=== PATIENT | female | born 1985 | race Caucasian/White ===

== ENCOUNTER 2016-08-21 03:31 | Emergency (ER) | payer MEDICAID ==
[2016-08-21] MEDS ORDERED: Ondansetron 4 MG/2 ML SDV IVPUSH ONE (04:17)
[2016-08-21] MEDS ORDERED: HYDROmorphone 0.5 MG/0.5 ML Syringe IVPUSH ONE ×3 (04:17→06:13)
--- NOTE | 2016-08-21 04:19 | EDM.PDOC ---
ED HPI LOWER BACK PAIN/INJURY - General Chief Complaint: Back Pain or Injury Stated Complaint: BACK/SCIATIC PAIN/MUSCLE CRAMPING Time Seen by Provider: 08/21/16 04:05 Source of Information: Reports: Patient History Limitations: Reports: Physical impairment - History of Present Illness INITIAL COMMENTS - FREE TEXT/NARRATIVE: 30-year-old female with chronic back pain presents to the ED with an acute flareup. At present she is spasming from right shoulder to left hip. She states it started about 2030 hours last evening. Patient has severe scoliosis of the thoracic and lumbar spine with chronic low back pain and sciatica down the right leg. At present she has severe pain radiating down her right leg to her big toe. States she's been in the bathtub twice tonight to try her with a spasm that can get a relief of the pain. She's taken 100 mg of tramadol every 4 hours she is taking methocarbamol and Flexeril without relief of the spasm. She can barely walk this morning due to the severity of the pain. Symptom Onset Date: 08/20/16 (Chronic low back pain but acute worsening about 2030 hours last evening.) Timing/Duration: Reports: Hour(s):, Sudden onset Location: Reports: other (Entire back from right shoulder to left hip.) Quality: Reports: Ache, Pressure, Throbbing, Other Severity: severe (Spasm.) Place of Occurrence: home Improves with: Reports: Medication (Usual medication that she takes did not seem to help relieve any of the pain tonight.) Worsens with: Reports: Movement Context: Reports: chronic pain/injury Associated Symptoms: Reports: Difficulty walking. 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 1 tab PO DAILY 08/05/14 [History] Vitamin D 50,000 Units. 50,000 units PO URRUTIA 08/05/14 [History] Multivitamin [Multivitamins] 1 cap PO DAILY 02/15/15 [History] Vitamin E 1 tab PO DAILY 02/15/15 [History] Cyclobenzaprine [Flexeril] 10 mg PO Q8H PRN 08/02/15 [History] traMADol [Ultram] 50 mg PO Q6H #10 tablet 09/14/15 [Rx] Methocarbamol 500 mg PO Q8HR PRN 07/03/16 [History] Baclofen 20 mg PO Q8H PRN #30 tablet 08/21/16 [Rx] Diclofenac Sodium [Voltaren] 50 mg PO TIDMEALS #30 tab.ec 08/21/16 [Rx] Prednisone [IMW: predniSONE] 20 mg PO ASDIRECTED #18 tab 08/21/16 [Rx] oxyCODONE HCl/Acetaminophen [Percocet 5-325 mg Tablet] 1 - 2 each PO Q4H PRN # 24 tablet 08/21/16 [Rx] Past Medical History [employer] History: Reports: Other OB/BYN History: Musculoskeletal History: Reports: Back pain, chronic Other Musculoskeletal History: scoliosis, spinal stenosis, bulging disc, sciatica 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 - Past Surgical History GI Surgical History: Reports: Cholecystectomy Female Surgical History: Reports: section Other Female Surgeries/Procedures: x4 Social & Family History - Family History Family Medical History: Noncontributory - Tobacco Use Smoking Status *Q: Never Smoker Years of Tobacco use: 5 Packs/Tins Daily: 0.1 Second Hand Smoke Exposure: No - Alcohol Use Days Per Week of Alcohol Use: 1 Number of Drinks Per Day: 2 Total Drinks Per Week: 2 - Recreational Drug Use Recreational Drug Use: No - Living Situation & Occupation Living situation: Reports: Occupation: employed ED ROS GENERAL - Review of Systems Review Of Systems: See Below Constitutional: Reports: malaise, weakness, fatigue. Denies: fever, chills, weight loss (From not being able to sleep) HEENT: Reports: No symptoms Respiratory: Reports: No Symptoms Cardiovascular: Reports: No symptoms Endocrine: Reports: fatigue GI/Abdominal: Denies: Abdominal pain : Reports: irregular menses (Mental menorrhagia. Is losing a fair amount of blood with each period. Has had to have iron transfusions 2 to iron loss as this.), other Musculoskeletal: Reports: shoulder pain, back pain, leg pain (Sciatica pain radiating all the way down the posterior lateral right leg to her big toe. The L5 nerve distribution) Skin: Reports: no symptoms Neurological: Reports: Difficulty Walking, Weakness, Gait Disturbance Psychiatric: Reports: No symptoms ED EXAM,LOWER BACK PAIN/INJURY - Physical Exam Exam: See Below Exam Limited By: Physical impairment General Appearance: alert, WD/WN, moderate distress (In severe pain in her back. ) Eye Exam: bilateral eye: normal inspection Head: atraumatic, normocephalic Neck: normal inspection, supple, non-tender, limited range of motion (Has spasm in her right paraspinal musculature.). No: lymphadenopathy (L), lymphadenopathy (R) Respiratory/Chest: no respiratory distress, lungs clear, normal breath sounds, no accessory muscle use Cardiovascular: normal peripheral pulses, regular rate, rhythm, no edema, no murmur GI/Abdominal: normal bowel sounds, soft, non tender, no organomegaly Back Exam: other (Has a severe scoliosis of the thoracic spine with curvature concave to the right. Lumbar compensatory curve is concave to the left.). No: normal inspection, full range of motion Extremities: normal range of motion, non-tender, no pedal edema Neurological: alert, normal mood/affect, CN II-XII intact, oriented x 3, straight leg raise (L) (No string sign with positivity other side), straight leg raise (R) (Positive) DTR - Lower Extremities: 0: ankle (R), 1+: knee (R), knee (L), ankle (L) Psychiatric: normal affect, normal mood Skin Exam: Warm, Dry, Intact, Normal color, No rash Course - Vital Signs Last Recorded V/S: Last Vital Signs Temp 37.0 C 08/21/16 03:41 Pulse 58 L 08/21/16 07:55 Resp 16 08/21/16 07:55 BP 104/67 08/21/16 07:55 Pulse Ox 100 08/21/16 07:55 - Orders/Labs/Meds Orders: Active Orders 24 hr Category Date Time Status Dextrose 5%-0.9% NaCl [Dextrose 5%-Normal Saline] 1,000 Med 08/21/16 04:30 Active ml IV ASDIRECTED Medication Orders Dextrose/Sodium Chloride (Dextrose 5%-Normal Saline) 1,000 mls @ 150 mls/hr IV ASDIRECTED LEONORA Last Admin: 08/21/16 04:40 Dose: 150 mls/hr Labs: Laboratory Tests 08/21/16 08/21/16 Range/Units 04:29 04:29 WBC 6.79 (3.98-10.04) K/mm3 RBC 4.70 (3.98-5.22) M/mm3 Hgb 12.7 (11.2-15.7) gm/L Hct 38.2 (34.1-44.9) % MCV 81.3 (79.4-94.8) fl MCH 27.0 (25.6-32.2) pg MCHC 33.2 (32.2-35.5) g/dl RDW Std Deviation 53.1 H (36.4-46.3) fL Plt Count 323 (182-369) K/mm3 MPV 10.4 (9.4-12.3) fl Neutrophils % (Manual) 58 (40-60) % Band Neutrophils % 0 (0-10) % Lymphocytes % (Manual) 32 (20-40) % Atypical Lymphs % 0 % Monocytes % (Manual) 8 (2-10) % Eosinophils % (Manual) 2 (0.7-5.8) % Basophils % (Manual) 0 L (0.1-1.2) Platelet Estimate Adequate RBC Morph Comment Normal Iron 55 (50-170) ug/dL TIBC 571 H (100-400) ug/dL % Saturation 10 L (20-55) % Transferrin 457 H (202-364) mg/dL Ferritin 10 (8-252) ng/ml Meds: Medications Generic Name Dose Route Start Last Admin Trade Name Freq PRN Reason Stop Dose Admin Dextrose/Sodium Chloride 1,000 mls @ 150 mls/hr 08/21/16 04:30 08/21/16 04:40 Dextrose 5%-Normal Saline IV 150 mls/hr ASDIRECTED LEONORA Administration Discontinued Medications Generic Name Dose Route Start Last Admin Trade Name Freq PRN Reason Stop Dose Admin Diazepam 5 mg 08/21/16 04:18 08/21/16 04:36 Valium IVPUSH 08/21/16 04:19 5 mg ONETIME ONE Administration Diazepam 5 mg 08/21/16 06:14 08/21/16 06:27 Valium IVPUSH 08/21/16 06:15 5 mg ONETIME ONE Administration Hydromorphone HCl 0.5 mg 08/21/16 04:17 08/21/16 04:38 Dilaudid IVPUSH 08/21/16 04:18 0.5 mg ONETIME ONE Administration Hydromorphone HCl 0.5 mg 08/21/16 05:15 08/21/16 05:34 Dilaudid IVPUSH 08/21/16 05:16 0.5 mg ONETIME ONE Administration Hydromorphone HCl 0.5 mg 08/21/16 06:13 08/21/16 06:25 Dilaudid IVPUSH 08/21/16 06:14 0.5 mg ONETIME ONE Administration Ondansetron HCl 4 mg 08/21/16 04:17 08/21/16 04:34 Zofran IVPUSH 08/21/16 04:18 4 mg ONETIME ONE Administration - Radiology Interpretation Free Text/Narrative:: 31-year-old female tends ED with an acute exacerbation of her chronic low back pain. Started lasting about 2030 hours and no matter what she's done at home she cannot get comfortable. Has taken extra doses of tramadol as well as cyclobenzaprine and Tylenol with some severe spasm in her entire back from right shoulder to left hip. She has sciatica radiculopathy pain down the right leg to the big toe in the discharged of L5 nerve root. Sedated thoroughly the past and is told she's not a surgical candidate. Plan essentially is that of pain management. We'll initiate Dilaudid 0.5 mg IV with Valium 5 mg IV and see how she does. Routine labs including iron binding capacity total iron and serum ferritin levels will be evaluated since she needs blood drawn tonight and he weighs and she was due for these blood tests tomorrow. - Re-Assessments/Exams Free Text/Narrative Re-Assessment/Exam: 08/21/16 05:20 - Currently rates her pain as 7/10. Therefore we'll give her another dose of Dilaudid 0.5 mg IV for pain relief. 08/21/16 06:14 and to get some relief of the spasm. She states she can now move her right leg. Will repeat Dilaudid 0.5 mg IV and Valium 5 mg IV. 08/21/16 07:30: Patient has gained some relief of some of the spasm and pain in her back. She was discharged to home in the care of her friend. Prescription written for Voltaren 50 mg 3 times daily for the next 10 days. Prednisone 20 mg with breakfast and supper for 6 days and one tablet in the morning once daily for 6 days as well. Baclofen 20 mg to be used Q8 hours when necessary for muscle spasm if needed. Percocet tabs 5 325 one to 2 every 4-6 hours needed for pain relief. Lab work done did prove that she is iron deficient. Total iron is 55 total iron binding capacity was 571% saturation is 10% transferrin was 457 ferritin is 10. She will discuss these results with her and Percocet her usual care provider . Pharmacy can help sort out iron needs. Departure - Departure Time of Disposition: 07:44 Disposition: Home, Self-Care 01 Condition: fair Clinical Impression: Acute exacerbation of chronic low back pain, Iron deficiency Sciatica Qualifiers: Laterality: right Qualified Code(s): M54.31 - Sciatica, right side Prescriptions: Baclofen 20 mg PO Q8H PRN #30 tablet PRN Reason: muscle spasm Diclofenac Sodium [Voltaren] 50 mg PO TIDMEALS #30 tab.ec Prednisone [IMW: predniSONE] 20 mg PO ASDIRECTED #18 tab oxyCODONE HCl/Acetaminophen [Percocet 5-325 mg Tablet] 1 - 2 each PO Q4H PRN # 24 tablet PRN Reason: pain relief. Instructions: Sciatica, Back Pain, Adult, [id number], Iron Deficiency Anemia , Adult, [id number] Referrals: Kelly Aburto PA-C [Primary Care Provider] - Forms: ED Department Discharge Additional Instructions: Evaluation in the emergency room today in regards to acute exacerbation of chronic low back pain. Associated diffuse muscle spasm from right shoulder to left hip. Chronic back pain from severe scoliosis of thoracic and lumbar spine. Sciatica involving the right leg in the L5 nerve root distribution. You're treated with intravenous medications overnight Dilaudid 0.5 mg x3 doses and Valium 5 mg IV x2 doses to relieve pain and muscle spasm. Lab work done at your request this was due tomorrow for iron deficiency anemia. did confirms iron deficiency with total iron of 55. Normal is 50-170. Total iron binding capacity was 571 normal is 100-400. Percent saturation was 10% normal is 20-55%. Ferritin level was 10 normal is 8-252. Follow up with her usual care provider who can discuss iron infusions with pharmacy to replace iron deficiency. In regards to the muscle spasm I prescribed Voltaren 50 mg 3 times daily for the next 10 days to relieve pain and inflammation. This is in combination with prednisone 20 mg with breakfast and supper for 6 days and then one tablet in the morning only for another 6 days. These tablets can be hard on the stomach and I would suggest being on Prilosec 20 mg once daily while on these medications. He may also try baclofen 20 mg tablet every 8-12 hours as needed for severe muscle spasm relief particularly when the muscle spasm starts. Percocet tablets 5/325mg --- 1-2 tabs every 4hrs as needed for pain relief. - My Orders Last 24 Hours: My Active Orders 08/21/16 04:30 Dextrose 5%-0.9% NaCl [Dextrose 5%-Normal Saline] 1,000 ml IV ASDIRECTED - Assessment/Plan Last 24 Hours: My Active Orders 08/21/16 04:30 Dextrose 5%-0.9% NaCl [Dextrose 5%-Normal Saline] 1,000 ml IV ASDIRECTED
[2016-08-21] MEDS ORDERED: Dextrose 5%-0.9% NaCl 1,000 ML IV SCH (04:30)
[2016-08-21 08:19] VITALS: BP 102/67
== END 2016-08-21 08:10 | disposition home or self-care (01) ==
LOC: JD.ED 03:31
DX: M54.5 Low back pain (principal); G89.29 Other chronic pain; E61.1 Iron deficiency; Z90.49 Acquired absence of other specified parts of digestive tract; Z85.820 Personal history of malignant melanoma of skin; Z88.5 Allergy status to narcotic agent
CPT/HCPCS: 36415; 82728; 83540; 84466; 85025; 96361; 96374; 96375; 96376; 99284; J1170; J2405; J3360; J7042

== ENCOUNTER → 2016-08-22 | Day surgery (SDC) | payer MEDICAID ==
[2016-08-22 08:54] VITALS: BP 108/66
== END ==
LOC: JD.IVTHER 08:20
PROVIDERS: ATTEND Physician Assistant
DX: E61.1 Iron deficiency (principal)
CPT/HCPCS: 96365; 96366; J1756; J7050

== ENCOUNTER 2016-09-17 19:15 | Emergency (ER) | payer MEDICAID ==
[2016-09-17 19:27] VITALS: BP 127/83
[2016-09-17] MEDS ORDERED: Sodium Chloride 0.9% 250 ML IV STA (19:27)
[2016-09-17] MEDS ORDERED: Sodium Chloride 0.9% 10 ML Syringe FLUSH PRN (19:40)
[2016-09-17] MEDS ORDERED: HYDROmorphone 1 MG/ML Syringe IVPUSH ONE (19:40)
[2016-09-17] MEDS ORDERED: Ketorolac 30 MG/ML SDV IVPUSH ONE (19:41)
--- NOTE | 2016-09-17 20:57 | EDM.PDOC ---
ED HPI GENERAL MEDICAL PROBLEM - General Chief Complaint: Back Pain or Injury Stated Complaint: BACK SPASMS Time Seen by Provider: 09/17/16 19:24 Source of Information: Reports: Patient History Limitations: Reports: No Limitations - History of Present Illness INITIAL COMMENTS - FREE TEXT/NARRATIVE: The patient presents with lower and upper back pain. She has a history of scholiosis and has seen multiple specialists. They have told her she may need surgery but there is no guarantee that she will be pain free. She went on a couple car rides recently and that has made it worse. She tried to take some tramadol today and it has not bee helping. She has some paint that shoots down her right leg. She has no fever, chills or cough. She denies numbness or weakness. Onset: Gradual Duration: Day(s): (Yesterday) Location: Reports: Back (Lower and upper back) Quality: Reports: Sharp Severity: Severe Improves with: Reports: None Worsens with: Reports: Movement Context: Reports: Activity (Riding in a car) Associated Symptoms: Reports: No Other Symptoms Back Pain Score (Numeric/FACES): 10 - Related Data Allergies Allergy/AdvReac Type Severity Reaction Status Date / Time No Known Allergies Allergy Verified 09/17/16 21:32 Home Meds: Home Meds Vitamin B12. 1 tab PO DAILY 08/05/14 [History] Vitamin D 50,000 Units. 50,000 units PO URRUTIA 08/05/14 [History] Multivitamin [Multivitamins] 1 cap PO DAILY 02/15/15 [History] Vitamin E 1 tab PO DAILY 02/15/15 [History] Cyclobenzaprine [Flexeril] 10 mg PO Q8H PRN 08/02/15 [History] traMADol [Ultram] 50 mg PO Q6H #10 tablet 09/14/15 [Rx] Methocarbamol 500 mg PO Q8HR PRN 07/03/16 [History] Baclofen 20 mg PO Q8H PRN #30 tablet 08/21/16 [Rx] Diclofenac Sodium [Voltaren] 50 mg PO TIDMEALS #30 tab.ec 08/21/16 [Rx] Prednisone [IMW: predniSONE] 20 mg PO ASDIRECTED #18 tab 08/21/16 [Rx] oxyCODONE HCl/Acetaminophen [Percocet 5-325 mg Tablet] 1 - 2 each PO Q4H PRN # 24 tablet 08/21/16 [Rx] Baclofen 20 mg PO Q8HR PRN #30 tablet 09/17/16 [Rx] Diclofenac Potassium [Cambia] 50 mg PO TID PRN #30 powd.pack 09/17/16 [Rx] Prednisone [IJD: predniSONE] 20 mg PO BID #18 tab 09/17/16 [Rx] oxyCODONE HCl/Acetaminophen [Percocet 5-325 mg Tablet] 1 - 2 each PO Q6HR PRN # 20 tablet 09/17/16 [Rx] Past Medical History [employer] History: Reports: Other OB/BYN History: Musculoskeletal History: Reports: Back Pain, Chronic Other Musculoskeletal History: scoliosis, spinal stenosis, bulging disc, sciatica 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 - Past Surgical History GI Surgical History: Reports: Cholecystectomy Female Surgical History: Reports: Section Social & Family History - Family History Family Medical History: Noncontributory - Tobacco Use Smoking Status *Q: Unknown Ever Smoked Years of Tobacco use: 5 Packs/Tins Daily: 0.1 Second Hand Smoke Exposure: No - Alcohol Use Days Per Week of Alcohol Use: 1 Number of Drinks Per Day: 2 Total Drinks Per Week: 2 - Recreational Drug Use Recreational Drug Use: No - Living Situation & Occupation Living situation: Reports: Occupation: Employed ED ROS GENERAL - Review of Systems Review Of Systems: See Below Constitutional: Reports: No Symptoms HEENT: Reports: No Symptoms Respiratory: Reports: No Symptoms Cardiovascular: Reports: No Symptoms Endocrine: Reports: No Symptoms GI/Abdominal: Reports: No Symptoms : Reports: No Symptoms Musculoskeletal: Reports: Back Pain (Upper and lower) Skin: Reports: No Symptoms Neurological: Reports: No Symptoms ED EXAM,LOWER BACK PAIN/INJURY - Physical Exam Exam: See Below Exam Limited By: No Limitations General Appearance: Alert, No Apparent Distress Ears: Normal External Exam Nose: Normal Inspection Head: Atraumatic, Normocephalic Neck: Normal Inspection Respiratory/Chest: No Respiratory Distress, Lungs Clear, Normal Breath Sounds Cardiovascular: Regular Rate, Rhythm, No Edema, No Murmur GI/Abdominal: Soft, Non-Tender, No Organomegaly, No Mass Back Exam: Other (Pain upon palpation to the upper and lower back) Extremities: Normal Inspection Neurological: Alert, No Motor/Sensory Deficits, Oriented x 3 Course - Vital Signs Last Recorded V/S: Last Vital Signs Temp 99.9 F 09/17/16 19:24 Pulse 86 09/17/16 19:24 Resp 18 09/17/16 19:24 BP 127/83 09/17/16 19:24 Pulse Ox 100 09/17/16 19:24 - Orders/Labs/Meds Orders: Active Orders 24 hr Category Date Time Status Peripheral IV Care [RC] . DIRECTED Care 09/17/16 19:40 Active Sodium Chloride 0.9% [Normal Saline] 1,000 ml Med 09/17/16 21:20 Active IV ONETIME Sodium Chloride 0.9% [Saline Flush] Med 09/17/16 19:40 Active 10 ml FLUSH ASDIRECTED PRN Peripheral IV Insertion Adult [OM.PC] Routine Oth 09/17/16 19:40 Ordered Medication Orders Sodium Chloride (Normal Saline) 1,000 mls @ 1,000 mls/hr IV ONETIME ONE Stop: 09/17/16 22:19 Last Admin: 09/17/16 21:26 Dose: 1,000 mls/hr Sodium Chloride (Saline Flush) 10 ml FLUSH ASDIRECTED PRN PRN Reason: Keep Vein Open Last Admin: 09/17/16 20:12 Dose: 10 ml Meds: Medications Generic Name Dose Route Start Last Admin Trade Name Freq PRN Reason Stop Dose Admin Sodium Chloride 1,000 mls @ 1,000 mls/hr 09/17/16 21:20 09/17/16 21:26 Normal Saline IV 09/17/16 22:19 1,000 mls/hr ONETIME ONE Administration Sodium Chloride 10 ml 09/17/16 19:40 09/17/16 20:12 Saline Flush FLUSH 10 ml ASDIRECTED PRN Administration Keep Vein Open Discontinued Medications Generic Name Dose Route Start Last Admin Trade Name Freq PRN Reason Stop Dose Admin Diazepam 5 mg 09/17/16 19:41 09/17/16 20:18 Valium IVPUSH 09/17/16 19:42 5 mg ONETIME ONE Administration Diazepam 5 mg 09/17/16 21:08 09/17/16 21:15 Valium IVPUSH 09/17/16 21:09 5 mg ONETIME ONE Administration Hydromorphone HCl 1 mg 09/17/16 19:40 09/17/16 20:16 Dilaudid IVPUSH 09/17/16 19:41 1 mg ONETIME ONE Administration Hydromorphone HCl 0.5 mg 09/17/16 21:08 09/17/16 21:15 Dilaudid IVPUSH 09/17/16 21:09 0.5 mg ONETIME ONE Administration Sodium Chloride 250 mls @ 75 mls/hr 09/17/16 19:27 09/17/16 19:48 Normal Saline IV 09/17/16 22:46 Not Given NOW STA Ketorolac Tromethamine 30 mg 09/17/16 19:41 09/17/16 20:14 Toradol IVPUSH 09/17/16 19:42 30 mg ONETIME ONE Administration Ondansetron HCl 4 mg 09/17/16 21:21 09/17/16 21:26 Zofran IVPUSH 09/17/16 21:22 4 mg ONETIME ONE Administration - Re-Assessments/Exams Free Text/Narrative Re-Assessment/Exam: 09/17/16 21:58 I ordered an IV saline lock, dilaudid 1mg IV, toradol 30mg IV and valium 5mg IV. I checked on her later and she still had pain so I ordered dilaudid 0.5g IV and valium 5mg IV. She is feeling better now so I will discharge her home. Departure - Departure Time of Disposition: 22:00 Disposition: Home, Self-Care 01 Condition: good Clinical Impression: Back muscle spasm, Low back pain of multiple sites of spine with sciatica, Acute exacerbation of chronic low back pain - Discharge Information Prescriptions: oxyCODONE HCl/Acetaminophen [Percocet 5-325 mg Tablet] 1 - 2 each PO Q6HR PRN # 20 tablet PRN Reason: Pain Baclofen 20 mg PO Q8HR PRN #30 tablet PRN Reason: Pain Diclofenac Potassium [Cambia] 50 mg PO TID PRN #30 powd.pack PRN Reason: Pain Prednisone [IJD: predniSONE] 20 mg PO BID #18 tab Referrals: Kelly Aburto PA-C [Primary Care Provider] - 1 Week Forms: ED Department Discharge Additional Instructions: Take the medication as prescribed. Please return if you are worse. - My Orders Last 24 Hours: My Active Orders 09/17/16 19:40 Peripheral IV Care [RC] . DIRECTED Sodium Chloride 0.9% [Saline Flush] 10 ml FLUSH ASDIRECTED PRN Peripheral IV Insertion Adult [OM.PC] Routine 09/17/16 21:20 Sodium Chloride 0.9% [Normal Saline] 1,000 ml IV ONETIME - Assessment/Plan Last 24 Hours: My Active Orders 09/17/16 19:40 Peripheral IV Care [RC] . DIRECTED Sodium Chloride 0.9% [Saline Flush] 10 ml FLUSH ASDIRECTED PRN Peripheral IV Insertion Adult [OM.PC] Routine 09/17/16 21:20 Sodium Chloride 0.9% [Normal Saline] 1,000 ml IV ONETIME
[2016-09-17] MEDS ORDERED: HYDROmorphone 0.5 MG/0.5 ML Syringe IVPUSH ONE (21:08)
[2016-09-17] MEDS ORDERED: Sodium Chloride 0.9% 1,000 ML IV ONE (21:20)
[2016-09-17] MEDS ORDERED: Ondansetron 4 MG/2 ML SDV IVPUSH ONE (21:21)
== END 2016-09-17 22:32 | disposition home or self-care (01) ==
LOC: JD.ED 19:15
DX: M62.830 Muscle spasm of back (principal); M54.30 Sciatica, unspecified side; M54.5 Low back pain; G89.29 Other chronic pain; Z90.49 Acquired absence of other specified parts of digestive tract; Z98.890 Other specified postprocedural states; Z79.899 Other long term (current) drug therapy
CPT/HCPCS: 96361; 96374; 96375; 96376; 99283; J1170; J1885; J2405; J3360; J7040; J7050; 99284

== ENCOUNTER 2016-11-08 11:57 | Emergency (ER) | payer BC, MEDICAID, OTHER, SELFPAY ==
[2016-11-08 12:15] VITALS: BP 115/62
[2016-11-08] MEDS ORDERED: Ketorolac 30 MG/ML SDV IVPUSH ONE (12:48)
[2016-11-08] MEDS ORDERED: HYDROmorphone 1 MG/ML Syringe IVPUSH ONE ×2 (12:48→14:30)
[2016-11-08] MEDS ORDERED: Ondansetron 4 MG/2 ML SDV IVPUSH ONE (12:48)
[2016-11-08] MEDS ORDERED: Sodium Chloride 0.9% 10 ML Syringe FLUSH PRN (13:28)
--- NOTE | 2016-11-08 15:03 | EDM.PDOC ---
ED HPI GENERAL MEDICAL PROBLEM - General Chief Complaint: Back Pain or Injury Stated Complaint: Back pain Time Seen by Provider: 11/08/16 12:30 Source of Information: Reports: Patient, RN Notes Reviewed History Limitations: Reports: No Limitations - History of Present Illness INITIAL COMMENTS - FREE TEXT/NARRATIVE: 31 year old female presents to the ED with complaints of upper back muscle spasms and pain. This is a recurrent problem for her related to severe scoliosis. She took Tramadol last evening with minimal relief. No chest pain or shortness of breath. She is here for pain control as her normal medications are not working. No new injury. Lower Back Pain Score (Numeric/FACES): 10 - Related Data Allergies Allergy/AdvReac Type Severity Reaction Status Date / Time No Known Allergies Allergy Verified 11/08/16 12:15 Home Meds: Home Meds Vitamin D 50,000 Units. 50,000 units PO URRUTIA 08/05/14 [History] Multivitamin [Multivitamins] 1 cap PO DAILY 02/15/15 [History] Vitamin E 1 tab PO DAILY 02/15/15 [History] Cyclobenzaprine [Flexeril] 10 mg PO Q8H PRN 08/02/15 [History] Methocarbamol 500 mg PO Q8HR PRN 07/03/16 [History] Acetaminophen/oxyCODONE [Percocet 325-5 MG] 1 - 2 tab PO Q4H PRN #15 tablet [Rx] Baclofen 20 mg PO Q8H PRN #20 tablet 11/08/16 [Rx] Diclofenac Sodium [Voltaren] 50 mg PO TIDMEALS #30 tab.ec 11/08/16 [Rx] Vitamin B12 Inj 11/08/16 [History] predniSONE [Prednisone] 20 mg PO BID #10 tablet 11/08/16 [Rx] traMADol [Ultram] 1 - 2 tab PO Q8H PRN 11/08/16 [History] Past Medical History Genitourinary History: Reports: Other (See Below) Other Genitourinary History: 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 - Past Surgical History GI Surgical History: Reports: Cholecystectomy Female Surgical History: Reports: Section Social & Family History - Family History Family Medical History: Noncontributory - Tobacco Use Smoking Status *Q: Never Smoker Years of Tobacco use: 5 Packs/Tins Daily: 0.1 Second Hand Smoke Exposure: No - Alcohol Use Days Per Week of Alcohol Use: 1 Number of Drinks Per Day: 2 Total Drinks Per Week: 2 - Recreational Drug Use Recreational Drug Use: No - Living Situation & Occupation Living situation: Reports: Occupation: Employed ED ROS GENERAL - Review of Systems Review Of Systems: See Below Constitutional: Reports: No Symptoms. Denies: Fever, Chills Respiratory: Reports: No Symptoms. Denies: Shortness of Breath Cardiovascular: Reports: No Symptoms. Denies: Chest Pain Musculoskeletal: Reports: Back Pain, Muscle Pain Neurological: Reports: No Symptoms ED EXAM, UPPER BACK/NECK PAIN - Physical Exam Exam: See Below Exam Limited By: No Limitations General Appearance: Alert, WD/WN, Moderate Distress Cardiovascular/Respiratory: Regular Rate, Rhythm, No M/R/G, Normal Peripheral Pulses Back Exam: Normal Inspection, Full Range of Motion, Muscle Spasm (diffuse muscle spasms ), Paraspinal Tenderness, Other (scoliosis ). No: Vertebral Tenderness Neurologic: No Motor/Sensory Deficits, Alert, Normal Mood/Affect Course - Vital Signs Last Recorded V/S: Last Vital Signs Temp 97.7 F 11/08/16 12:05 Pulse 67 11/08/16 12:05 Resp 20 11/08/16 12:05 BP 115/62 11/08/16 12:05 Pulse Ox 100 11/08/16 12:05 - Orders/Labs/Meds Orders: Active Orders 24 hr Category Date Time Status Peripheral IV Care [RC] . DIRECTED Care 11/08/16 13:29 Active Sodium Chloride 0.9% [Saline Flush] Med 11/08/16 13:28 Active 10 ml FLUSH ASDIRECTED PRN Peripheral IV Insertion Adult [OM.PC] Stat Oth 11/08/16 13:28 Ordered Medication Orders Sodium Chloride (Saline Flush) 10 ml FLUSH ASDIRECTED PRN PRN Reason: Keep Vein Open Last Admin: 11/08/16 14:45 Dose: 10 ml Meds: Medications Generic Name Dose Route Start Last Admin Trade Name Dawitq PRN Reason Stop Dose Admin Sodium Chloride 10 ml 11/08/16 13:28 11/08/16 14:45 Saline Flush FLUSH 10 ml ASDIRECTED PRN Administration Keep Vein Open Discontinued Medications Generic Name Dose Route Start Last Admin Trade Name Dawitq PRN Reason Stop Dose Admin Diazepam 5 mg 11/08/16 12:48 11/08/16 13:23 Valium IV 11/08/16 12:49 5 mg ONETIME ONE Administration Diazepam 5 mg 11/08/16 14:30 11/08/16 14:45 Valium IV 11/08/16 14:31 5 mg ONETIME ONE Administration Fentanyl 50 mcg 11/08/16 15:24 11/08/16 15:36 Sublimaze IVPUSH 11/08/16 15:25 50 mcg ONETIME ONE Administration Hydromorphone HCl 1 mg 11/08/16 12:48 11/08/16 13:20 Dilaudid IVPUSH 11/08/16 12:49 1 mg ONETIME ONE Administration Hydromorphone HCl 1 mg 11/08/16 14:30 11/08/16 14:40 Dilaudid IVPUSH 11/08/16 14:31 1 mg ONETIME ONE Administration Ketorolac Tromethamine 30 mg 11/08/16 12:48 11/08/16 13:18 Toradol IVPUSH 11/08/16 12:49 30 mg ONETIME ONE Administration Ondansetron HCl 4 mg 11/08/16 12:48 11/08/16 13:16 Zofran IVPUSH 11/08/16 12:49 4 mg ONETIME ONE Administration - Re-Assessments/Exams Free Text/Narrative Re-Assessment/Exam: Patient was treated with Dilaudid, Fentanyl, Zofran, and Toradol. Her pain improved. She is requesting same medication regimen as her last two ED visits. She was instructed to f/u with her PCP for recheck next week. Departure - Departure Time of Disposition: 15:46 Disposition: Home, Self-Care 01 Condition: Good Clinical Impression: Back muscle spasm Scoliosis Qualifiers: Scoliosis type: unspecified scoliosis Spinal region: unspecified Qualified Code (s): M41.9 - Scoliosis, unspecified - Discharge Information Prescriptions: Acetaminophen/oxyCODONE [Percocet 325-5 MG] 1 - 2 tab PO Q4H PRN #15 tablet PRN Reason: Pain Baclofen 20 mg PO Q8H PRN #20 tablet PRN Reason: Muscle Spasm Diclofenac Sodium [Voltaren] 50 mg PO TIDMEALS #30 tab.ec predniSONE [Prednisone] 20 mg PO BID #10 tablet Forms: ED Department Discharge Additional Instructions: Follow-up with your primary care provider next week Voltaren 50 mg 3 times daily for the next 10 days. Prednisone 20 mg with breakfast and supper for 5 days Baclofen 20 mg to be used Q8 hours when necessary for muscle spasm if needed. Percocet tabs 5 325 1 to 2 every 4-6 hours needed for pain relief. - My Orders Last 24 Hours: My Active Orders 11/08/16 13:28 Sodium Chloride 0.9% [Saline Flush] 10 ml FLUSH ASDIRECTED PRN Peripheral IV Insertion Adult [OM.PC] Stat 11/08/16 13:29 Peripheral IV Care [RC] . DIRECTED - Assessment/Plan Last 24 Hours: My Active Orders 11/08/16 13:28 Sodium Chloride 0.9% [Saline Flush] 10 ml FLUSH ASDIRECTED PRN Peripheral IV Insertion Adult [OM.PC] Stat 11/08/16 13:29 Peripheral IV Care [RC] . DIRECTED
[2016-11-08] MEDS ORDERED: fentaNYL 100 MCG/2 ML SDV IVPUSH ONE (15:24)
== END 2016-11-08 16:10 | disposition home or self-care (01) ==
LOC: JD.ED 11:57
DX: M62.830 Muscle spasm of back (principal); M41.9 Scoliosis, unspecified; Z85.820 Personal history of malignant melanoma of skin; Z90.49 Acquired absence of other specified parts of digestive tract
CPT/HCPCS: 96374; 96375; 96376; 99283; J1170; J1885; J2405; J3010; J3360; J7050; 99284

== ENCOUNTER 2016-12-05 20:24 | Emergency (ER) | payer BC, MEDICAID, OTHER, SELFPAY ==
[2016-12-05 20:42] VITALS: BP 100/61
[2016-12-05] MEDS ORDERED: LORazepam 2 MG/ML MDV IVPUSH ONE (20:58)
[2016-12-05] MEDS ORDERED: Ketorolac 30 MG/ML SDV IVPUSH ONE (20:58)
[2016-12-05] MEDS ORDERED: HYDROmorphone 1 MG/ML Syringe IVPUSH ONE ×2 (20:58→21:45)
[2016-12-05] MEDS ORDERED: Sodium Chloride 0.9% 1,000 ML IV ONE (20:59)
--- NOTE | 2016-12-05 21:07 | EDM.PDOC ---
ED HPI GENERAL MEDICAL PROBLEM - General Chief Complaint: Back Pain or Injury Stated Complaint: BACK PAIN Time Seen by Provider: 12/05/16 20:39 Source of Information: Reports: Patient History Limitations: Reports: No Limitations - History of Present Illness INITIAL COMMENTS - FREE TEXT/NARRATIVE: Patient is a 31-year-old female with a history of severe scoliosis who presents to the ED complaining of severe back spasms. States pain started at approximately 2:00 this afternoon with no provoking factors. She took tramadol 50 mg 2 tabs by mouth and soaked in a tub with no relief. Pain is rated 10 out of 10 on ad. Pain radiates half ways down the posterior aspect of her right side. She did ambulate into the ED on her own accord. Denies any saddle anesthesia, incontinence to urine or stool, numbness or tingling, or any additional complaints. She has been seen on 2 separate occasions in the E.D. for similar symptoms. Right Lower Back Pain Score (Numeric/FACES): 10 - Related Data Allergies Allergy/AdvReac Type Severity Reaction Status Date / Time No Known Allergies Allergy Verified 11/08/16 12:15 Home Meds: Home Meds Vitamin D 50,000 Units. 1 tab PO DAILY 08/05/14 [History] Multivitamin [Multivitamins] 1 cap PO DAILY 02/15/15 [History] Vitamin E 1 tab PO DAILY 02/15/15 [History] Cyclobenzaprine [Flexeril] 10 mg PO Q8H PRN 08/02/15 [History] Methocarbamol 500 mg PO Q8HR PRN 07/03/16 [History] Baclofen 20 mg PO Q8H PRN #20 tablet 11/08/16 [Rx] Vitamin B12 Inj 11/08/16 [History] traMADol [Ultram] 1 - 2 tab PO Q8H PRN 11/08/16 [History] Past Medical History Genitourinary History: Reports: Other (See Below) Other Genitourinary History: severe menst. 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 - Past Surgical History GI Surgical History: Reports: Cholecystectomy Female Surgical History: Reports: Section Social & Family History - Family History Family Medical History: Noncontributory - Tobacco Use Smoking Status *Q: Never Smoker Years of Tobacco use: 5 Packs/Tins Daily: 0.1 Second Hand Smoke Exposure: No - Caffeine Use Caffeine Use: Reports: Coffee - Alcohol Use Days Per Week of Alcohol Use: 1 Number of Drinks Per Day: 2 Total Drinks Per Week: 2 - Recreational Drug Use Recreational Drug Use: No - Living Situation & Occupation Living situation: Reports: Occupation: Employed ED ROS GENERAL - Review of Systems Review Of Systems: ROS reveals no pertinent complaints other than HPI. ED EXAM, UPPER BACK/NECK PAIN - Physical Exam Exam: See Below Exam Limited By: No Limitations General Appearance: Alert, WD/WN, Moderate Distress Ears Exam: Hearing Grossly Normal Nose Exam: Normal Inspection Throat/Mouth Exam: Normal Voice, No Airway Compromise Neck Exam: Non-Tender, Full Range of Motion, Normal Alignment Cardiovascular/Respiratory: Regular Rate, Rhythm, No M/R/G, Normal Peripheral Pulses GI/Abdominal: Normal Bowel Sounds, Soft, Non-Tender Back Exam: Other (Scoliosis curvature. Increased pain with palpation of the thoracic/lumbar vertebral column and paraspinal muscles.) Extremities: Normal Inspection, Non-Tender, No Pedal Edema, Normal Capillary Refill Neurologic: bundle person II-XII nml As Tested, No Motor/Sensory Deficits, Alert, Normal Mood/Affect, Oriented x 3 Psychiatric: Normal Affect, Normal Mood Skin Exam: Normal Color, Warm/Dry Course - Vital Signs Last Recorded V/S: Last Vital Signs Temp 99.3 F 12/05/16 20:39 Pulse 98 12/05/16 20:39 Resp 20 12/05/16 20:39 BP 100/61 12/05/16 20:39 Pulse Ox 98 12/05/16 20:39 - Orders/Labs/Meds Meds: Medications Discontinued Medications Generic Name Dose Route Start Last Admin Trade Name Dawitq PRN Reason Stop Dose Admin Diazepam 5 mg 12/05/16 20:58 12/05/16 21:21 Valium IVPUSH 12/05/16 20:59 5 mg ONETIME ONE Administration Diazepam 5 mg 12/05/16 21:45 08/23/17 22:17 Valium IVPUSH 12/05/16 21:46 5 mg ONETIME ONE Administration Hydromorphone HCl 1 mg 12/05/16 20:58 12/05/16 21:13 Dilaudid IVPUSH 12/05/16 20:59 1 mg ONETIME ONE Administration Hydromorphone HCl 1 mg 12/05/16 21:45 12/05/16 22:13 Dilaudid IVPUSH 12/05/16 21:46 1 mg ONETIME ONE Administration Sodium Chloride 1,000 mls @ 999 mls/hr 12/05/16 20:59 12/05/16 21:12 Normal Saline IV 12/05/16 21:59 999 mls/hr ONETIME ONE Administration Ketorolac Tromethamine 30 mg 12/05/16 20:58 12/05/16 21:26 Toradol IVPUSH 12/05/16 20:59 30 mg ONETIME ONE Administration Lorazepam 0.5 mg 12/05/16 20:58 12/05/16 21:19 Ativan IVPUSH 12/05/16 20:59 0.5 mg ONETIME ONE Administration Ondansetron HCl Confirm 12/05/16 21:18 12/05/16 22:28 Zofran Administered 12/05/16 21:19 Not Given Dose 4 mg .ROUTE .STK-MED ONE Ondansetron HCl 4 mg 12/05/16 21:29 12/05/16 21:30 Zofran IVPUSH 12/05/16 21:30 4 mg ONETIME ONE Administration - Re-Assessments/Exams Free Text/Narrative Re-Assessment/Exam: Previous presentation to the ED with similar symptoms patient received IV Dilaudid, Valium, Toradol, and Zofran along with some fluids. This is been ordered as well. She states any other options would not work. 12/05/16 21:46 Reassessment, patient continues to complain of pain. Symptoms have not improved with the above therapies. Ordered valium 5mg IVP and dilaudid 1mg IVP. 12/05/16 22:15 Reassessment, pain is a 7/10. Medications are in the process of being administered. Once these medications are given will prepare patient for discharge home. No further pain medications will be given. Discharge instructions as documented. Departure - Departure Time of Disposition: 22:51 Disposition: Home, Self-Care 01 Condition: Good Clinical Impression: Back muscle spasm Scoliosis Qualifiers: Scoliosis type: unspecified scoliosis Spinal region: thoracolumbar Qualified Code(s): M41.9 - Scoliosis, unspecified - Discharge Information Instructions: Muscle Strain, [id number], Back Pain, Adult, [id number], Chronic Back Pain, Pain Medicine Instructions, [id number] Referrals: Kelly Aburto PA-C [Primary Care Provider] - Forms: ED Department Discharge, ED Return to Work/School Form Additional Instructions: No driving this evening since receiving a sedative medication while in the E.D. Suggest going home to sleep. Continue taking all home medications as prescribed. Utilize warm compresses to the affected area along gentle massage for pain. Followup with PCP as needed. Return to the E.D. for any new or worsening symptoms.
[2016-12-05] MEDS ORDERED: Ondansetron 4 MG/2 ML SDV ONE (21:18)
[2016-12-05] MEDS ORDERED: Ondansetron 4 MG/2 ML SDV IVPUSH ONE (21:29)
== END 2016-12-05 22:51 | disposition home or self-care (01) ==
LOC: JD.ED 20:24
DX: M41.9 Scoliosis, unspecified (principal); M62.830 Muscle spasm of back; Z90.49 Acquired absence of other specified parts of digestive tract; Z85.820 Personal history of malignant melanoma of skin; Z79.899 Other long term (current) drug therapy
CPT/HCPCS: 96361; 96374; 96375; 96376; 99283; J1170; J1885; J2060; J2405; J3360; J7040

== ENCOUNTER 2016-12-11 16:12 | Emergency (ER) | payer MEDICAID ==
[2016-12-11 16:30] VITALS: BP 128/80
[2016-12-11] MEDS ORDERED: Acetaminophen/oxyCODONE 325-5 MG Tab PO ONE (16:44)
[2016-12-11] MEDS ORDERED: Ondansetron 4 MG/2 ML SDV IVPUSH ONE (16:44)
[2016-12-11] MEDS ORDERED: Ondansetron 4 MG Tab.DIS PO ONE (16:46)
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
[2016-12-11] MEDS ORDERED: HYDROmorphone 1 MG/ML Syringe IVPUSH ONE (17:27)
[2016-12-11] MEDS ORDERED: diphenhydrAMINE 50 MG/ML SDV IVPUSH ONE (17:27)
[2016-12-11] MEDS ORDERED: Sodium Chloride 0.9% 1,000 ML IV SCH (17:30)
[2016-12-11] MEDS ORDERED: Ketorolac 30 MG/ML SDV IVPUSH SCH (17:30)
[2016-12-11] MEDS ORDERED: methylPREDNISolone Sodium Succinate 125 MG/2 ML SDV IM ONE (18:20)
[2016-12-11] MEDS ORDERED: HYDROmorphone 0.5 MG/0.5 ML Syringe IVPUSH ONE (18:20)
[2016-12-11] MEDS ORDERED: methylPREDNISolone Sodium Succinate 125 MG/2 ML SDV IVPUSH ONE (18:30)
--- NOTE | 2016-12-13 08:32 | CR ---
Thoracic spine: AP and lateral views of the thoracic spine were obtained. Scoliosis is again noted. Vertebral body heights are maintained. Pedicles are intact. No discrete fracture or other bony abnormality is seen. Slight degenerative change is noted within the lower thoracic spine. Impression: 1. Scoliosis and mild degenerative change. 2. Nothing acute is definitely appreciated. Diagnostic code #2 MTDD
--- NOTE | 2016-12-13 08:34 | CR ---
Lumbar spine: AP, lateral and coned-down lateral views centered to the thoracolumbar junction were obtained. Comparison: Previous MRI lumbar spine study of 09/08/15. Prominent scoliosis is noted within the spine. Mild scattered endplate osteophytes are seen within the lower thoracic spine. No definite acute abnormality is identified. Sacroiliac joints are within normal limits. Incidental surgical clips are noted from prior cholecystectomy. Impression: 1. Prominent scoliosis. Nothing acute is definitely appreciated. Diagnostic code #2 MTDD
--- NOTE | 2016-12-13 08:35 | CR ---
Left second toe: Four views centered to the left second toe were obtained. Joint spaces are preserved. Slight cortical disruption appears to be present within the base of the distal phalanx which is felt compatible with small fracture. Soft tissue swelling is noted. No additional abnormality is appreciated. Impression: 1. Chip fracture believed to be present within the base of the distal phalanx of the left second toe. 2. Soft tissue swelling. Diagnostic code #3 MTDD
--- NOTE | 2016-12-13 08:38 | CR ---
Right hand: Four views of the right hand were obtained. Comparison: No previous hand exam. Joint spaces are maintained. No fracture, dislocation or other bony abnormality is identified. Mild soft tissue swelling is seen. Impression: 1. No bony abnormality is identified on right hand exam. Diagnostic code #2 MTDD
== END 2016-12-11 19:30 | disposition home or self-care (01) ==
LOC: JD.ED 16:12
DX: S13.9XXA Sprain of joints and ligaments of unspecified parts of neck, initial encounter (principal); S90.122A Contusion of left lesser toe(s) without damage to nail, initial encounter; S60.221A Contusion of right hand, initial encounter; M54.5 Low back pain; G89.29 Other chronic pain; M46.1 Sacroiliitis, not elsewhere classified; Z85.820 Personal history of malignant melanoma of skin; Z79.899 Other long term (current) drug therapy; Z90.49 Acquired absence of other specified parts of digestive tract; Y04.0XXA Assault by unarmed brawl or fight, initial encounter
CPT/HCPCS: 72070; 72100; 73130; 73660; 96361; 96374; 96375; 96376; 99284; A9270; J1170; J1200; J1885; J2930; J3360; J7040

== ENCOUNTER 2017-01-27 12:32 | Emergency (ER) | payer MEDICAID ==
[2017-01-27] MEDS ORDERED: cefTRIAXone 2 GM in Sodium Chloride 0.9% 100 ML IV ONE (12:52)
[2017-01-27] MEDS ORDERED: Sodium Chloride 0.9% 10 ML Syringe FLUSH PRN (12:52)
[2017-01-27] MEDS ORDERED: Lidocaine 1% 10 ML MDV INJECT ONE (12:52)
[2017-01-27 12:53] VITALS: BP 124/76
[2017-01-27] MEDS ORDERED: Ondansetron 4 MG/2 ML SDV IVPUSH ONE (12:54)
[2017-01-27] MEDS ORDERED: HYDROmorphone 0.5 MG/0.5 ML Syringe IVPUSH ONE (12:54)
[2017-01-27] MEDS ORDERED: Ketorolac 30 MG/ML SDV IVPUSH SCH (13:00)
--- NOTE | 2017-01-27 13:00 | EDM.PDOC ---
ED HPI GENERAL MEDICAL PROBLEM - General Chief Complaint: Skin Complaint Stated Complaint: CYST ON LIP Time Seen by Provider: 01/27/17 12:50 Source of Information: Reports: Patient History Limitations: Reports: No Limitations - History of Present Illness INITIAL COMMENTS - FREE TEXT/NARRATIVE: 31-year-old female presents to the ED with an infected skin lesion in the upper lip midline. She states it started out as a pimple a few days ago and it is much worse and she squeezed it. She did get active purulent material out of it initially. Now it's become much more reddened and swollen and painful. At the walk-in clinic yesterday and started on doxycycline 100 mg twice a day which was a good choice to cover for MRSA. However it'll take a few days to start to work. Patient states can't stand the throbbing pain and is requesting I&D. Onset: Sudden Onset Date: 01/24/17 Duration: Day(s): Location: Reports: Face (Midline upper lip) Quality: Reports: Ache, Pressure, Throbbing Severity: Moderate Improves with: Reports: None Worsens with: Reports: Other (Touch) Context: Reports: Other (Infected skin lesion). 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 1 tab PO DAILY 08/05/14 [History] Multivitamin [Multivitamins] 1 cap PO DAILY 02/15/15 [History] Vitamin E 1 tab PO DAILY 02/15/15 [History] Cyclobenzaprine [Flexeril] 10 mg PO Q8H PRN 08/02/15 [History] Methocarbamol 500 mg PO Q8HR PRN 07/03/16 [History] Baclofen 20 mg PO Q8H PRN #20 tablet 11/08/16 [Rx] Vitamin B12 Inj 11/08/16 [History] traMADol [Ultram] 1 - 2 tab PO Q8H PRN 11/08/16 [History] Baclofen 10 mg PO Q8H PRN #15 tablet 12/11/16 [Rx] Diclofenac Sodium [Voltaren] 50 mg PO TIDMEALS #30 tab.ec 12/11/16 [Rx] Prednisone [IJD: predniSONE] 20 mg PO ASDIRECTED #15 tab 12/11/16 [Rx] atoMOXetine HCl [Strattera] 100 mg PO DAILY 12/11/16 [History] oxyCODONE HCl/Acetaminophen [Percocet 5-325 mg Tablet] 1 - 2 each PO Q4H PRN # 30 tablet 12/11/16 [Rx] Past Medical History Genitourinary History: Reports: Other (See Below) Other Genitourinary History: severe menst. 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 - Past Surgical History GI Surgical History: Reports: Cholecystectomy Female Surgical History: Reports: Section Social & Family History - Family History Family Medical History: Noncontributory - Tobacco Use Smoking Status *Q: Never Smoker Years of Tobacco use: 5 Packs/Tins Daily: 0.1 Second Hand Smoke Exposure: No - Caffeine Use Caffeine Use: Reports: Coffee - Alcohol Use Days Per Week of Alcohol Use: 1 Number of Drinks Per Day: 2 Total Drinks Per Week: 2 - Recreational Drug Use Recreational Drug Use: No - Living Situation & Occupation Living situation: Reports: Occupation: Employed ED ROS GENERAL - Review of Systems Review Of Systems: See Below Constitutional: Reports: Malaise. Denies: Fever, Chills HEENT: Reports: No Symptoms Respiratory: Reports: No Symptoms Cardiovascular: Reports: No Symptoms Endocrine: Reports: No Symptoms GI/Abdominal: Reports: Constipation : Reports: No Symptoms Musculoskeletal: Reports: Back Pain (Chronic severe back pain from severe scoliosis. Associated intermittent severe muscle spasms.) Skin: Reports: Erythema, Wound (Midline upper lip. [place] infected lesion), Other Neurological: Reports: No Symptoms Psychiatric: Reports: No Symptoms ED EXAM, SKIN/RASH Exam: See Below Exam Limited By: No Limitations General Appearance: Alert, WD/WN, Anxious, Moderate Distress Eye Exam: Bilateral Eye: Normal Inspection Nose: Normal Inspection Throat/Mouth: Other (Patient has an infected skin lesion midline of the upper lip that is traveling towards her nose. There is marked erythema and swelling in this area and you can tell that the lesion has been open the middle and intermittently draining. It is approximately 8 mm thickened and is approximately 1.2 cm diameter or more.) Head: Atraumatic, Normocephalic Neck: Normal Inspection, Supple, Non-Tender, Full Range of Motion. No: Lymphadenopathy (L), Lymphadenopathy (R) Respiratory/Chest: No Respiratory Distress, Lungs Clear, Normal Breath Sounds, No Accessory Muscle Use Course - Vital Signs Last Recorded V/S: Last Vital Signs Temp 36.6 C 01/27/17 12:51 Pulse 95 01/27/17 12:51 Resp 20 01/27/17 12:51 BP 124/76 01/27/17 12:51 Pulse Ox 98 01/27/17 12:51 - Orders/Labs/Meds Orders: Active Orders 24 hr Category Date Time Status Peripheral IV Care [RC] . DIRECTED Care 01/27/17 12:52 Active CULTURE WOUND [RM] Stat Lab 01/27/17 13:45 Received Peripheral IV Insertion Adult [OM.PC] Stat Oth 01/27/17 12:52 Ordered Meds: Medications Discontinued Medications Generic Name Dose Route Start Last Admin Trade Name Alin PRN Reason Stop Dose Admin Ceftriaxone Sodium Confirm 01/27/17 13:04 01/27/17 13:23 Rocephin Administered 01/27/17 13:05 Not Given Dose 2 gm .ROUTE .STK-MED ONE Ceftriaxone Sodium Confirm 01/27/17 13:05 01/27/17 13:24 Rocephin Administered 01/27/17 13:06 Not Given Dose 2 gm IV .STK-MED ONE Hydromorphone HCl 0.5 mg 01/27/17 12:54 01/27/17 13:19 Dilaudid IVPUSH 01/27/17 12:55 0.5 mg ONETIME ONE Administration Ceftriaxone Sodium 2 gm/ 100 mls @ 200 mls/hr 01/27/17 12:52 01/27/17 13:25 Sodium Chloride IV 01/27/17 13:21 200 mls/hr ONETIME ONE Administration Ketorolac Tromethamine 30 mg 01/27/17 13:00 01/27/17 13:16 Toradol IVPUSH 30 mg ONETIME LEONORA Administration Lidocaine HCl 10 ml 01/27/17 12:52 01/27/17 13:30 Xylocaine 1% INJECT 01/27/17 12:53 10 ml ONETIME ONE Administration Ondansetron HCl 4 mg 01/27/17 12:54 01/27/17 13:14 Zofran IVPUSH 01/27/17 12:55 4 mg ONETIME ONE Administration Sodium Chloride 10 ml 01/27/17 12:52 01/27/17 13:30 Saline Flush FLUSH 10 ml ASDIRECTED PRN Administration Keep Vein Open - Radiology Interpretation Free Text/Narrative:: 30-year-old female presents to the ED with an infected skin lesion upper lip. Started out as a pimple and she did get some purulent material out of it when she squeezes it on . This is 4 days ago suddenly the areas become much more swollen erythematous and painful. She was started on doxycycline 100 mg twice a day for 10 days yesterday at the walk-in clinic which is a good choice to cover for MRSA. She has no history of MRSA infection. Patient has a chronic pain syndrome due to severe scoliosis of her thoracic spine. She is requesting I &D of this abscess and I will open up under local anesthetic. Not clear that we' ll get a lot of discharge from it. She will be given Rocephin 2 g intravenously. Also Dilaudid 0.5 mg Zofran 4 mg for pain relief. Cultures will be obtained from the wound if we get much drainage. - Re-Assessments/Exams Free Text/Narrative Re-Assessment/Exam: 01/27/17 13:46 wound opened and drained of maybe half a mL. Cultures were obtained. Some purulent aterial and some necrotic tissue. No sebaceous cyst is evident. The wound was left open and I only was only opened 3 mm . She will be discharged once she has completed IV Rocephin infusion. She is already on doxycycline and has a 10 day supply.. Departure - Departure Time of Disposition: 14:20 Disposition: Home, Self-Care 01 Condition: Fair Clinical Impression: Abscess of skin and subcutaneous tissue Qualifiers: Site of cutaneous abscess: face Qualified Code(s): L02.01 - Cutaneous abscess of face - Discharge Information Instructions: Abscess Referrals: Kelly Aburto PA-C [Primary Care Provider] - Forms: ED Department Discharge Additional Instructions: Evaluation the emergency room today in regards to development of skin abscess involving the subcutaneous tissues of the upper lip in the midline. These are almost always caused by staph aureus organisms. Per your request incision and drainage of this lesion was carried out under local anesthetic. Cultures were obtained. You were given a dose of antibiotic Rocephin 2 g intravenously while in the ED. Continue the doxycycline 100 mg twice daily that is been previously prescribed as it covers MRSA and other staph and strep organisms. Apply topical bacitracin to the lesion once or twice daily until healed. Continue all other medications as before. - My Orders Last 24 Hours: My Active Orders 01/27/17 12:52 Peripheral IV Care [RC] . DIRECTED Peripheral IV Insertion Adult [OM.PC] Stat 01/27/17 13:45 CULTURE WOUND [RM] Stat - Assessment/Plan Last 24 Hours: My Active Orders 01/27/17 12:52 Peripheral IV Care [RC] . DIRECTED Peripheral IV Insertion Adult [OM.PC] Stat 01/27/17 13:45 CULTURE WOUND [RM] Stat
[2017-01-27] MEDS ORDERED: cefTRIAXone 2 GM Vial ONE (13:04)
[2017-01-27] MEDS ORDERED: cefTRIAXone 2 GM AdvVial IV ONE (13:05)
== END 2017-01-27 14:27 | disposition home or self-care (01) ==
LOC: JD.ED 12:32
DX: L02.01 Cutaneous abscess of face (principal); Z90.49 Acquired absence of other specified parts of digestive tract
CPT/HCPCS: 10060; 87070; 87077; 87186; 96365; 96375; 99283; J0696; J1170; J1885; J2405; J7030; J7050

== ENCOUNTER 2017-03-27 10:03 | Emergency (ER) | payer MEDICAID ==
[2017-03-27 10:28] VITALS: BP 110/81
[2017-03-27] MEDS ORDERED: Sodium Chloride 0.9% 1,000 ML IV ONE (11:35)
[2017-03-27] MEDS ORDERED: Ondansetron 4 MG/2 ML SDV IVPUSH ONE ×2 (11:35→15:46)
[2017-03-27] MEDS ORDERED: HYDROmorphone 1 MG/ML Syringe IVPUSH ONE (11:35)
--- NOTE | 2017-03-27 11:37 | EDM.PDOC ---
ED HPI GENERAL MEDICAL PROBLEM - General Chief Complaint: Gastrointestinal Problem Stated Complaint: DIARRHEA/DEHYDRATION Time Seen by Provider: 03/27/17 11:37 Source of Information: Reports: Patient History Limitations: Reports: No Limitations - History of Present Illness INITIAL COMMENTS - FREE TEXT/NARRATIVE: Patient is a 31-year-old female with a history of scoliosis who presents to the ED complaining of nausea/vomiting, diarrhea, generalized abdominal pain, and back spasms. Patient states the diarrhea started approximately 1.5 weeks ago. States multiple coworkers have similar symptoms. Symptoms have self resolved. States she started vomiting yesterday along with the diarrhea. She's had approximately 6 episodes of vomiting yesterday and 4 today. She is unable to keep anything down at this point. She states abdominal pain is worse with vomiting. Although worse it does persist described as a throbbing achy sensation with intermittent cramping. There's been no documented fever although she felt warm at times. She has been chilled. She denies any blood in her stool or dysuria. There's been no chest congestion, cough, shortness of breath, chest pain, generalized body aches, presyncope/syncopal episodes. She has not been able to take any of the multitude of medications for back pain and spasms. She denies being . States she is on control and her partner is fixed. She still has her appendix, but does not have a gallbladder. Abdominal Pain Score (Numeric/FACES): 9 - Related Data Allergies Allergy/AdvReac Type Severity Reaction Status Date / Time No Known Allergies Allergy Verified 03/27/17 10:28 Home Meds: Home Meds Multivitamin [Multivitamins] 1 cap PO DAILY 02/15/15 [History] Cyclobenzaprine [Flexeril] 10 mg PO Q8H PRN 08/02/15 [History] Methocarbamol 500 mg PO Q8HR PRN 07/03/16 [History] Baclofen 20 mg PO Q8H PRN #20 tablet 11/08/16 [Rx] Vitamin B12 Inj 11/08/16 [History] traMADol [Ultram] 1 - 2 tab PO Q8H PRN 11/08/16 [History] Baclofen 10 mg PO Q8H PRN #15 tablet 12/11/16 [Rx] Diclofenac Sodium [Voltaren] 50 mg PO TIDMEALS #30 tab.ec 12/11/16 [Rx] atoMOXetine HCl [Strattera] 100 mg PO DAILY 12/11/16 [History] Prednisone [IJD: predniSONE] 20 mg PO ASDIRECTED 03/27/17 [History] Past Medical History Genitourinary History: Reports: Other (See Below) Other Genitourinary History: severe menst. 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 - Past Surgical History GI Surgical History: Reports: Cholecystectomy Female Surgical History: Reports: Section Social & Family History - Family History Family Medical History: Noncontributory - Tobacco Use Smoking Status *Q: Never Smoker Years of Tobacco use: 5 Packs/Tins Daily: 0.1 Second Hand Smoke Exposure: No - Caffeine Use Caffeine Use: Reports: Coffee - Alcohol Use Days Per Week of Alcohol Use: 1 Number of Drinks Per Day: 2 Total Drinks Per Week: 2 - Recreational Drug Use Recreational Drug Use: No - Living Situation & Occupation Living situation: Reports: Occupation: Employed ED ROS GENERAL - Review of Systems Review Of Systems: ROS reveals no pertinent complaints other than HPI. ED EXAM, GI/ABD - Physical Exam Exam: See Below Exam Limited By: No Limitations General Appearance: Alert, WD/WN, Mild Distress Ears: Hearing Grossly Normal Nose: Normal Inspection Throat/Mouth: Normal Voice, No Airway Compromise, Other (Dry oromucosa) Neck: Normal Inspection, Supple Respiratory/Chest: No Respiratory Distress, Lungs Clear, Normal Breath Sounds, No Accessory Muscle Use, Chest Non-Tender Cardiovascular: Normal Peripheral Pulses, Regular Rate, Rhythm, No Murmur GI/Abdominal Exam: Normal Bowel Sounds, Soft, No Organomegaly, No Distention, Tender (Throughout with palpation) Neurological: Alert, Oriented, CN II-XII Intact, Normal Cognition Psychiatric: Normal Affect, Normal Mood Skin Exam: Warm, Dry, Intact, Normal Color, No Rash Course - Vital Signs Last Recorded V/S: Last Vital Signs Temp 98.6 F 03/27/17 10:20 Pulse 73 03/27/17 10:20 Resp 17 03/27/17 10:20 BP 110/81 03/27/17 10:20 Pulse Ox 100 03/27/17 10:20 Orthostatic Blood Pressure [ 102/74 Standing] Orthostatic Blood Pressure [ 105/79 Sitting] Orthostatic Blood Pressure [ 104/64 Side, Left] - Orders/Labs/Meds Orders: Active Orders 24 hr Category Date Time Status Peripheral IV Care [RC] . DIRECTED Care 03/27/17 11:35 Active Abdomen Pelvis w Cont [CT] Stat Exams 03/27/17 14:53 Taken Sodium Chloride 0.9% [Saline Flush] Med 03/27/17 11:35 Active 10 ml FLUSH ASDIRECTED PRN Sodium Chloride 0.9% [Saline Flush] Med 03/27/17 15:14 Active 10 ml FLUSH ONETIME PRN Peripheral IV Insertion Adult [OM.PC] Stat Oth 03/27/17 11:34 Ordered Medication Orders Sodium Chloride (Saline Flush) 10 ml FLUSH ASDIRECTED PRN PRN Reason: Keep Vein Open Last Admin: 03/27/17 15:21 Dose: 10 ml Admin: 03/27/17 11:57 Dose: 10 ml Sodium Chloride (Saline Flush) 10 ml FLUSH ONETIME PRN PRN Reason: IV FLUSH Last Admin: 03/27/17 16:11 Dose: 10 ml Labs: Laboratory Tests 03/27/17 03/27/17 03/27/17 Range/Units 11:50 11:50 11:50 WBC 5.40 (3.98-10.04) K/mm3 RBC 5.02 (3.98-5.22) M/mm3 Hgb 14.9 (11.2-15.7) gm/L Hct 44.9 (34.1-44.9) % MCV 89.4 (79.4-94.8) fl MCH 29.7 (25.6-32.2) pg MCHC 33.2 (32.2-35.5) g/dl RDW Std Deviation 43.4 (36.4-46.3) fL Plt Count 257 (182-369) K/mm3 MPV 9.9 (9.4-12.3) fl Neut % (Auto) 68.3 (34.0-71.1) % Lymph % (Auto) 24.6 (19.3-51.7) % Dickey % (Auto) 5.6 (4.7-12.5) % Eos % (Auto) 0.6 L (0.7-5.8) Baso % (Auto) 0.7 (0.1-1.2) % Neut # (Auto) 3.69 (1.56-6.13) K/mm3 Lymph # (Auto) 1.33 (1.18-3.74) K/mm3 Dickey # (Auto) 0.30 (0.24-0.36) K/mm3 Eos # (Auto) 0.03 L (0.04-0.36) K/mm3 Baso # (Auto) 0.04 (0.01-0.08) K/mm3 Sodium 140 (136-145) mEq/L Potassium 4.1 (3.5-5.1) mEq/L Chloride 107 (98-107) mEq/L Carbon Dioxide 27 (21-32) mEq/L Anion Gap 10.1 (5-15) BUN 11 (7-18) mg/dL Creatinine 0.7 (0.55-1.02) mg/dL Est Cr Clr Drug Dosing 107.01 mL/min Estimated GFR (MDRD) > 60 (>60) mL/min BUN/Creatinine Ratio 15.7 (14-18) Glucose 91 (74-106) mg/dL Calcium 9.4 (8.5-10.1) mg/dL Total Bilirubin 1.0 (0.2-1.0) mg/dL AST 40 H (15-37) U/L ALT 60 H (14-59) U/L Alkaline Phosphatase 81 (46-116) U/L C-Reactive Protein < 0.2 (<1.0) mg/dL Total Protein 7.5 (6.4-8.2) g/dl Albumin 3.9 (3.4-5.0) g/dl Globulin 3.6 gm/dL Albumin/Globulin Ratio 1.1 (1-2) Lipase 122 (73-393) U/L HCG, Qual Negative (NEGATIVE) Urine Color (Yellow) Urine Appearance (Clear) Urine pH (5.0-8.0) Ur Specific [place] (1.005-1.030) Urine Protein (Negative) Urine Glucose (UA) (Negative) Urine Ketones (Negative) Urine Occult Blood (Negative) Urine Nitrite (Negative) Urine Bilirubin (Negative) Urine Urobilinogen (0.2-1.0) Ur Leukocyte Esterase (Negative) Urine RBC (0-5) /hpf Urine WBC (0-5) /hpf Ur Epithelial Cells (0-5) /hpf Urine Bacteria (FEW) /hpf Urine Mucus (FEW) /hpf Urine Opiates Screen (NEGATIVE) Ur Buprenorphine Scrn (NEGATIVE) Ur Oxycodone Screen (NEGATIVE) Urine Methadone Screen (NEGATIVE) Ur Propoxyphene Screen (NEGATIVE) Ur Barbiturates Screen (NEGATIVE) Ur Tricyclics Screen (NEGATIVE) Ur Phencyclidine Scrn (NEGATIVE) Ur Amphetamine Screen (NEGATIVE) U Methamphetamines Scrn (NEGATIVE) U Benzodiazepines Scrn (NEGATIVE) U Cocaine Metab Screen (NEGATIVE) U Marijuana (THC) Screen (NEGATIVE) 03/27/17 03/27/17 Range/Units 13:07 13:07 WBC (3.98-10.04) K/mm3 RBC (3.98-5.22) M/mm3 Hgb (11.2-15.7) gm/L Hct (34.1-44.9) % MCV (79.4-94.8) fl MCH (25.6-32.2) pg MCHC (32.2-35.5) g/dl RDW Std Deviation (36.4-46.3) fL Plt Count (182-369) K/mm3 MPV (9.4-12.3) fl Neut % (Auto) (34.0-71.1) % Lymph % (Auto) (19.3-51.7) % Dickey % (Auto) (4.7-12.5) % Eos % (Auto) (0.7-5.8) Baso % (Auto) (0.1-1.2) % Neut # (Auto) (1.56-6.13) K/mm3 Lymph # (Auto) (1.18-3.74) K/mm3 Dickey # (Auto) (0.24-0.36) K/mm3 Eos # (Auto) (0.04-0.36) K/mm3 Baso # (Auto) (0.01-0.08) K/mm3 Sodium (136-145) mEq/L Potassium (3.5-5.1) mEq/L Chloride (98-107) mEq/L Carbon Dioxide (21-32) mEq/L Anion Gap (5-15) BUN (7-18) mg/dL Creatinine (0.55-1.02) mg/dL Est Cr Clr Drug Dosing mL/min Estimated GFR (MDRD) (>60) mL/min BUN/Creatinine Ratio (14-18) Glucose (74-106) mg/dL Calcium (8.5-10.1) mg/dL Total Bilirubin (0.2-1.0) mg/dL AST (15-37) U/L ALT (14-59) U/L Alkaline Phosphatase (46-116) U/L C-Reactive Protein (<1.0) mg/dL Total Protein (6.4-8.2) g/dl Albumin (3.4-5.0) g/dl Globulin gm/dL Albumin/Globulin Ratio (1-2) Lipase (73-393) U/L HCG, Qual (NEGATIVE) Urine Color Yellow (Yellow) Urine Appearance Clear (Clear) Urine pH 6.5 (5.0-8.0) Ur Specific [place] > or = 1.030 (1.005-1.030) Urine Protein Negative (Negative) Urine Glucose (UA) Negative (Negative) Urine Ketones Negative (Negative) Urine Occult Blood Negative (Negative) Urine Nitrite Negative (Negative) Urine Bilirubin Negative (Negative) Urine Urobilinogen 0.2 (0.2-1.0) Ur Leukocyte Esterase Negative (Negative) Urine RBC Not seen (0-5) /hpf Urine WBC 0-5 (0-5) /hpf Ur Epithelial Cells 0-5 (0-5) /hpf Urine Bacteria Few (FEW) /hpf Urine Mucus Few (FEW) /hpf Urine Opiates Screen Presumptive positive H (NEGATIVE) Ur Buprenorphine Scrn Negative (NEGATIVE) Ur Oxycodone Screen Negative (NEGATIVE) Urine Methadone Screen Negative (NEGATIVE) Ur Propoxyphene Screen Negative (NEGATIVE) Ur Barbiturates Screen Negative (NEGATIVE) Ur Tricyclics Screen Negative (NEGATIVE) Ur Phencyclidine Scrn Negative (NEGATIVE) Ur Amphetamine Screen Negative (NEGATIVE) U Methamphetamines Scrn Negative (NEGATIVE) U Benzodiazepines Scrn Presumptive positive H (NEGATIVE) U Cocaine Metab Screen Negative (NEGATIVE) U Marijuana (THC) Screen Presumptive positive H (NEGATIVE) Meds: Medications Generic Name Dose Route Start Last Admin Trade Name Alin PRN Reason Stop Dose Admin Sodium Chloride 10 ml 03/27/17 11:35 03/27/17 15:21 Saline Flush FLUSH 10 ml ASDIRECTED PRN Administration Keep Vein Open Sodium Chloride 10 ml 03/27/17 15:14 03/27/17 16:11 Saline Flush FLUSH 10 ml ONETIME PRN Administration IV FLUSH Discontinued Medications Generic Name Dose Route Start Last Admin Trade Name Frekacie PRN Reason Stop Dose Admin Diatrizoate Meglum/Diatrizoate Sod 90 ml 03/27/17 15:14 03/27/17 16:11 Gastrografin 37% PO 03/27/17 15:15 90 ml ONETIME ONE Administration Hydromorphone HCl 1 mg 03/27/17 11:35 03/27/17 11:58 Dilaudid IVPUSH 03/27/17 11:36 1 mg ONETIME ONE Administration Sodium Chloride 1,000 mls @ 999 mls/hr 03/27/17 11:35 03/27/17 12:01 Normal Saline IV 03/27/17 12:35 999 mls/hr ONETIME ONE Administration Iopamidol 125 ml 03/27/17 15:14 03/27/17 16:11 Isovue-300 (61%) IVPUSH 03/27/17 15:15 125 ml ONETIME ONE Administration Metoclopramide HCl 5 mg 03/27/17 14:53 03/27/17 15:19 Reglan IVPUSH 03/27/17 14:54 5 mg ONETIME ONE Administration Ondansetron HCl 4 mg 03/27/17 11:35 03/27/17 11:56 Zofran IVPUSH 03/27/17 11:36 4 mg ONETIME ONE Administration Ondansetron HCl 4 mg 03/27/17 15:46 03/27/17 15:53 Zofran IVPUSH 03/27/17 15:47 4 mg ONETIME ONE Administration - Re-Assessments/Exams Free Text/Narrative Re-Assessment/Exam: IV established with normal saline 999 mils per hour, Dilaudid 1 mg IVP, Zofran 4 mg IVP. Initial labs and studies include CBC, chem 14, lipase, UA, urine drug tox, CRP, and hCG. Two-view of the abdomen will be obtained as well. Labs reviewed: CBC, chem 14 were essentially normal. Mild elevation in LFTs. CRP less than 0.2. Lipase 122, hCG negative. Abdominal x-ray reviewed: Severe scoliosis with a few air fluid levels. Nonspecific stool pattern. No signs of obstruction present. Reviewed with Dr. Niecy Keene Orthostatic vitals were negative. UA negative for concerning finding. Urine drug tox postive for opiates, benzodiazepines, and THC. 03/27/17 14:57 Final interpretation of abdominal 2 view flat and upright impression: Findings suspicious for small bowel obstruction. Other incidental findings. Discussed results of x-ray and labs with patient. She is requesting CT of the abdomen/pelvis at this time. This has been ordered with oral and IV contrast. In addition she still has some nausea Reglan 5 mg IVP ordered. 03/27/17 17:06 CT has not been read by Dr. Shankar sent to [facility]. There will be a delay in reading. Patient is informed the nurse that she has to go due to family issues. Patient left without discharge instructions. Patient states she will return for results and discharge instructions. 03/27/17 17:48 Finally obtained results of CT abdomen and pelvis impression: No acute findings. Hepatic steatosis. Status post cholecystectomy. Departure - Departure Time of Disposition: 17:09 Disposition: Eloped 07 Condition: Good Clinical Impression: Vomiting, Diarrhea, Abdominal pain, Gastroenteritis, Back muscle spasm Abdominal pain Qualifiers: Abdominal location: generalized Qualified Code(s): R10.84 - Generalized abdominal pain - Discharge Information Referrals: Lexi Denton, CORPORATE QUALITY MANAGER [Primary Care Provider] - Forms: ED Department Discharge - My Orders Last 24 Hours: My Active Orders 03/27/17 11:34 Peripheral IV Insertion Adult [OM.PC] Stat 03/27/17 11:35 Peripheral IV Care [RC] . DIRECTED Sodium Chloride 0.9% [Saline Flush] 10 ml FLUSH ASDIRECTED PRN 03/27/17 14:53 Abdomen Pelvis w Cont [CT] Stat 03/27/17 15:14 Sodium Chloride 0.9% [Saline Flush] 10 ml FLUSH ONETIME PRN - Assessment/Plan Last 24 Hours: My Active Orders 03/27/17 11:34 Peripheral IV Insertion Adult [OM.PC] Stat 03/27/17 11:35 Peripheral IV Care [RC] . DIRECTED Sodium Chloride 0.9% [Saline Flush] 10 ml FLUSH ASDIRECTED PRN 03/27/17 14:53 Abdomen Pelvis w Cont [CT] Stat 03/27/17 15:14 Sodium Chloride 0.9% [Saline Flush] 10 ml FLUSH ONETIME PRN
[2017-03-27] MEDS: Sodium Chloride 0.9% 10 ML Syringe FLUSH PRN ×2 (11:57→15:21)
--- NOTE | 2017-03-27 14:21 | CR ---
Abdomen: Supine and upright views of the abdomen were obtained. Comparison: No prior abdominal x-ray. Scoliosis is present within the spine. Several calcifications are present within the pelvis compatible with phleboliths. Slightly prominent gas within several small bowel loops is seen with air-fluid levels. No free air is identified. Surgical clips are noted from prior cholecystectomy. Impression: 1. Findings suspicious for small bowel obstruction. 2. Other incidental findings. Diagnostic code #3
[2017-03-27] MEDS ORDERED: Metoclopramide 10 MG/2 ML SDV IVPUSH ONE (14:53)
[2017-03-27] MEDS ORDERED: Iopamidol 612 MG/ML 150 ML Bottle IVPUSH ONE (15:14)
[2017-03-27] MEDS ORDERED: Sodium Chloride 0.9% 10 ML Syringe FLUSH PRN (15:14)
[2017-03-27] MEDS ORDERED: Diatrizoate Meglumine/Diatrizoate Sodium 37% 120 ML Bottle PO ONE (15:14)
--- NOTE | 2017-03-28 06:49 | CT ---
CT abdomen and pelvis Technique: Multiple axial sections were obtained from above the dome of the diaphragm inferiorly through the pubic symphysis. Intravenous and oral contrast has been utilized. Comparison: No prior CT abdomen or pelvis exam. Findings: Visualized lung bases show nothing acute. Questionable fatty infiltration within the liver. No focal abnormality is appreciated. Spleen appears within normal limits. Adrenal glands show no nodule. Kidneys show symmetric contrast enhancement without hydronephrosis. Low-density lesion identified within the left kidney measuring approximately 1.7 cm which is felt compatible with an incidental cyst. Prior surgery noted at the gastroesophageal junction. Pancreas appears within normal limits. Aorta shows no aneurysmal dilatation. No retroperitoneal adenopathy or mesenteric abnormalities are seen. Slightly prominent lymph nodes are noted within the right lower abdomen which are felt to be incidental. No pelvic mass or adenopathy is seen. Delayed images show contrast within the distal ureters and within the bladder. No bowel dilatation is seen. Appendix is seen and is normal. Impression: 1. Incidental findings as noted above. Nothing acute is appreciated on CT study of the abdomen and pelvis. Diagnostic code #2 I agree with preliminary report issued by [employer] ([facility] preliminary report dictated on 03/27/17, 6:29 PM Central Time)
== END 2017-03-27 17:00 | disposition left against medical advice (07) ==
LOC: JD.ED 10:03
DX: K52.9 Noninfective gastroenteritis and colitis, unspecified (principal); M62.830 Muscle spasm of back; Z79.899 Other long term (current) drug therapy
CPT/HCPCS: 36415; 74020; 74177; 80053; 80306; 81001; 83690; 84703; 85025; 86140; 96361; 96374; 96375; 96376; 99285; J1170; J2405; J2765; J7040; J7050; Q9963; Q9967; 99284

== ENCOUNTER 2017-04-07 11:16 | Emergency (ER) | payer MEDICAID ==
[2017-04-07 11:28] VITALS: BP 124/76
[2017-04-07] MEDS ORDERED: Ondansetron 4 MG Tab.DIS PO ONE (11:50)
[2017-04-07] MEDS ORDERED: HYDROmorphone 1 MG/ML Syringe IM ONE (11:50)
--- NOTE | 2017-04-07 12:02 | EDM.PDOC ---
ED HPI GENERAL MEDICAL PROBLEM - General Chief Complaint: General Stated Complaint: FELL ON ICE HIT CHIN Time Seen by Provider: 04/07/17 11:40 Source of Information: Reports: Patient History Limitations: Reports: No Limitations - History of Present Illness INITIAL COMMENTS - FREE TEXT/NARRATIVE: Patient is a 31-year-old female who presents to the ED complaining of severe swelling and pain noted to the chin. Patient states last night while walking in the [employer] parking lot she hit a patch of ice falling hitting the chin on the pavement. There was questionable loss consciousness. Patient states with returning home she took 2 shots of tequila and awoke this morning dizzy, headache present retro-orbital throbbing sensation, severe in nature, describes as worst headache of her life, with no vision changes or numbness or tingling to the extremities. Patient took 100 mg of tramadol this morning for pain that she takes chronically for her scoliosis. She is sore and stiff all over. Face Pain Score (Numeric/FACES): 10 - Related Data Allergies Allergy/AdvReac Type Severity Reaction Status Date / Time No Known Allergies Allergy Verified 03/27/17 10:28 Home Meds: Home Meds Multivitamin [Multivitamins] 1 cap PO DAILY 02/15/15 [History] Cyclobenzaprine [Flexeril] 10 mg PO Q8H PRN 08/02/15 [History] Methocarbamol 500 mg PO Q8HR PRN 07/03/16 [History] Vitamin B12 Inj 1 injection INH ASDIRECTED 11/08/16 [History] traMADol [Ultram] 1 - 2 tab PO Q8H PRN 11/08/16 [History] Baclofen 10 mg PO Q8H PRN #15 tablet 12/11/16 [Rx] atoMOXetine HCl [Strattera] 100 mg PO DAILY 12/11/16 [History] Diazepam [Valium] 5 mg PO ASDIRECTED 04/07/17 [History] Past Medical History Genitourinary History: Reports: Other (See Below) Other Genitourinary History: severe menst. 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 - Past Surgical History GI Surgical History: Reports: Cholecystectomy Female Surgical History: Reports: Section Social & Family History - Family History Family Medical History: Noncontributory - Tobacco Use Smoking Status *Q: Never Smoker Years of Tobacco use: 5 Packs/Tins Daily: 0.1 Second Hand Smoke Exposure: No - Caffeine Use Caffeine Use: Reports: Coffee, Tea - Alcohol Use Days Per Week of Alcohol Use: 1 Number of Drinks Per Day: 2 Total Drinks Per Week: 2 - Recreational Drug Use Recreational Drug Use: No - Living Situation & Occupation Living situation: Reports: Occupation: Employed ED ROS GENERAL - Review of Systems Review Of Systems: ROS reveals no pertinent complaints other than HPI. ED EXAM, GENERAL - Physical Exam Exam: See Below Exam Limited By: No Limitations General Appearance: Alert, WD/WN, Moderate Distress Eye Exam: Bilateral Eye: EOMI, PERRL Ears: Normal Canal, Hearing Grossly Normal Nose: Normal Inspection, Normal Mucosa, No Blood. No: Nasal Tenderness Throat/Mouth: Normal Teeth, Normal Voice, No Airway Compromise, Other (Lower lip is quite swollen with pain on palpation. With evaluating the inner aspect lip and gum line do not see any obvious lacerations present. No loose teeth present. Mild abrasion noted to the upper lip) Head: Facial Swelling (Moderate swelling to the chin with ecchymosis present. Severe pain with palpation. No bony abnormalities noted. She is able to open her mouth with no difficulties noted. There is a click present. This is chronic no change.) Neck: Normal Inspection, Supple, Limited Range of Motion, Tender Midline Respiratory/Chest: No Respiratory Distress, Lungs Clear, Normal Breath Sounds, No Accessory Muscle Use, Chest Non-Tender Cardiovascular: Normal Peripheral Pulses, Regular Rate, Rhythm, No Murmur Peripheral Pulses: 4+: Radial (L), Radial (R) Back Exam: Other (Patient has chronic pain to her back secondary to severe scoliosis. No new changes with recent fall.) Extremities: Normal Inspection, Normal Range of Motion, Non-Tender, Normal Capillary Refill Neurological: Alert, Oriented, CN II-XII Intact, Normal Cognition, No Motor/ Sensory Deficits Psychiatric: Normal Affect, Normal Mood Skin Exam: Warm, Dry Course - Vital Signs Last Recorded V/S: Last Vital Signs Temp 97.2 F 04/07/17 11:26 Pulse 76 04/07/17 11:26 Resp 20 04/07/17 11:26 BP 124/76 04/07/17 11:26 Pulse Ox 99 04/07/17 11:26 - Orders/Labs/Meds Meds: Medications Discontinued Medications Generic Name Dose Route Start Last Admin Trade Name Alin PRN Reason Stop Dose Admin Hydromorphone HCl 1 mg 04/07/17 11:50 04/07/17 11:57 Dilaudid IM 04/07/17 11:51 1 mg ONETIME ONE Administration Ondansetron HCl 4 mg 04/07/17 11:50 04/07/17 11:57 Zofran Odt PO 04/07/17 11:51 4 mg ONETIME ONE Administration - Re-Assessments/Exams Free Text/Narrative Re-Assessment/Exam: Patient has localized swelling to the chin with severe pain with palpation. Concerning for fracture present. In addition there was a questionable loss of consciousness with recent headache, dizziness, ounce issues. She also has some pain to the posterior aspect her neck along the cervical spine with palpation with no deformities. Thus this will prompt CT of the head, maxillofacial bones, and cervical spine. I've ordered Dilaudid 1 mg IM and also Zofran 4 mg by mouth. Patient denies being . She is on control and her partner is fixed. Last hCG obtained 03/27/2017 was negative. 04/07/17 13:36 CT facial bones impression: Soft tissue swelling and hematoma around the chin. Incidental retention cyst within the inferior right maxillary sinus. No acute fractures seen. CT cervical spine impression: Slight cervical kyphosis which may related to muscle spasm or positioning. No additional abnormalities seen on CT study of the cervical spine. CT head impression: Empty sella as a normal variant. No acute intracranial abnormalities appreciated. No acute calvarial abnormality is seen. Pain adequately controlled with the above therapies. Will discharge patient home with instructions as documented. Departure - Departure Time of Disposition: 13:38 Disposition: Home, Self-Care 01 Condition: Good Clinical Impression: Neck pain, acute Traumatic ecchymosis of chin Qualifiers: Encounter type: initial encounter Qualified Code(s): S00.83XA - Contusion of other part of head, initial encounter Concussion Qualifiers: Encounter type: initial encounter Loss of consciousness presence/duration: with LOC of unspecified duration Qualified Code(s): S06.0X9A - Concussion with loss of consciousness of unspecified duration, initial encounter - Discharge Information Referrals: Lexi Denton NP [Primary Care Provider] - Forms: ED Department Discharge Additional Instructions: No fractures noted on CT studies. Hematoma to the chin noted. Treatment this point is symptomatic care including ice to the affected area 4 times a day, 20 minutes in duration, do not place ice directly on the skin. Ibuprofen 600 mg every 6 hours and Tylenol 650 mg every 6 hours and alternate fashion for pain. Take your tramadol as prescribed her back pain this will also treat her hematoma to her chin. Can also place the warm compresses and ice to the neck as well. Refrain from any activities that cause worsening discomfort. Follow-up with PCP as needed. Return to the ED if you develop worsening headache, vision changes, numbness or tingling to extremities, seizure, mentation changes, or focal neurological deficits. Refrain from any alcohol use for the next 24-48 hours.
--- NOTE | 2017-04-07 13:12 | CT ---
Addendum: Voice recognition error is identified within the fifth sentence under findings. Following is the corrected sentence. No bony central or bony neural foraminal stenosis is seen. --- Addendum1 above dictated on [04/11/2017 06:58] by [Rao Shankar, David Joya] --- --- Addendum1 above signed on [04/11/2017 07:20] by [Rao Shankar Hilton J.] --- --- Original report below dictated on [04/07/2017 13:08] by [Rao Shankar Hilton J.] --- --- Original report below signed on [04/07/2017 13:09] by [Rao Shankar Hilton J.] --- CT cervical spine Technique: Multiple axial sections were obtained from above C1 inferiorly to the bottom of T1. Reconstructed sagittal and coronal images were reviewed. Findings: Vertebral body heights and disc spaces are maintained. Slight cervical kyphosis is noted. Vertebral bodies and posterior arches are intact. No fracture is seen. No bony central or bony neural foraminal. No abnormal subluxation is seen. Impression: 1. Slight cervical kyphosis which may relate to muscle spasm or positioning. 2. No additional abnormality is seen on CT study of the cervical spine. Diagnostic code #2 --- Addendum1 signed ---
--- NOTE | 2017-04-07 13:20 | CT ---
Head CT Technique: Multiple axial sections through the brain were obtained. Intravenous contrast was not utilized. Comparison: No prior intracranial imaging. Findings: Ventricles along with basal cisterns and sulci over the convexities are within normal limits for the patient's age. No abnormal parenchymal densities are seen. No evidence of intracranial hemorrhage. No midline shift or mass effect is seen. Bone window settings were reviewed which shows no acute calvarial abnormality. Visualized sinuses are clear. Widening of the sella turcica is seen due to so-called empty sella. Small lucent skull lesion is seen within the frontal bone measuring 1.0 cm. This is felt to be incidental since this is the only calvarial abnormality. Impression: 1. Empty sella as a normal variant. 2. No acute intracranial abnormality is appreciated. No acute calvarial abnormality is seen. Diagnostic code #2
--- NOTE | 2017-04-07 13:22 | CT ---
CT facial bones Technique: Multiple axial sections through the facial bones were obtained. Intravenous contrast was not utilized. Reconstructed coronal and sagittal images were reviewed. Comparison: No previous maxillofacial imaging is available. Findings: Retention cyst is identified within the inferior right maxillary sinus measuring 2.2 cm. No air-fluid levels are seen within the paranasal sinuses. Soft tissue swelling and hematoma are identified around the chin. No acute fracture or other abnormality is identified. Impression: 1. Soft tissue swelling and hematoma around the chin. 2. Incidental retention cyst within the inferior right maxillary sinus. 3. No acute fracture is seen. Diagnostic code #2
== END 2017-04-07 13:51 | disposition home or self-care (01) ==
LOC: JD.ED 11:16
DX: S06.0X9A Concussion with loss of consciousness of unspecified duration, initial encounter (principal); S00.83XA Contusion of other part of head, initial encounter; Z79.899 Other long term (current) drug therapy; W00.2XXA Other fall from one level to another due to ice and snow, initial encounter
CPT/HCPCS: 70450; 70486; 72125; 96372; 99284; A9270; J1170; 99283

== ENCOUNTER 2017-06-18 13:40 | Emergency (ER) | payer MEDICAID ==
--- NOTE | 2017-06-18 14:06 | EDM.PDOC ---
ED HPI GENERAL MEDICAL PROBLEM - General Chief Complaint: Back Pain or Injury Stated Complaint: BACK PAIN Time Seen by Provider: 06/18/17 14:03 Source of Information: Reports: Patient History Limitations: Reports: No Limitations - History of Present Illness INITIAL COMMENTS - FREE TEXT/NARRATIVE: Patient is a 32-year-old female with a history of scoliosis who presents ED complaining of back spasms. States back spasms started approximately hour ago and she came directly to the ER without taking any oral medications. No precipitating factors other than the weather change. Pain shoots from her low back into her neck. Patient drove her self to the ER. Denies any numbness into into her genital area or incontinence to urine. No pain radiating around to the posterior aspect of her legs. Back Pain Score (Numeric/FACES): 10 - Related Data Allergies Allergy/AdvReac Type Severity Reaction Status Date / Time No Known Allergies Allergy Verified 03/27/17 10:28 Home Meds: Home Meds Multivitamin [Multivitamins] 1 cap PO DAILY 02/15/15 [History] Cyclobenzaprine [Flexeril] 10 mg PO Q8H PRN 08/02/15 [History] Methocarbamol 500 mg PO Q8HR PRN 07/03/16 [History] traMADol [Ultram] 1 - 2 tab PO Q8H PRN 11/08/16 [History] Baclofen 10 mg PO Q8H PRN #15 tablet 12/11/16 [Rx] atoMOXetine HCl [Strattera] 100 mg PO DAILY 12/11/16 [History] Diazepam [Valium] 5 mg PO ASDIRECTED 04/07/17 [History] Cyanocobalamin (Vitamin B12) [Vitamin B12] 1,000 mcg INJECT ASDIRECTED 06/18/17 [History] Past Medical History Genitourinary History: Reports: Other (See Below) Other Genitourinary History: severe menst. 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 - Past Surgical History GI Surgical History: Reports: Cholecystectomy Female Surgical History: Reports: Section Social & Family History - Family History Family Medical History: Noncontributory - Tobacco Use Smoking Status *Q: Never Smoker Years of Tobacco use: 5 Packs/Tins Daily: 0.1 Second Hand Smoke Exposure: No - Caffeine Use Caffeine Use: Reports: Coffee, Tea - Alcohol Use Days Per Week of Alcohol Use: 1 Number of Drinks Per Day: 2 Total Drinks Per Week: 2 - Recreational Drug Use Recreational Drug Use: No - Living Situation & Occupation Living situation: Reports: Occupation: Employed ED ROS GENERAL - Review of Systems Review Of Systems: ROS reveals no pertinent complaints other than HPI. ED EXAM,LOWER BACK PAIN/INJURY - Physical Exam Exam: See Below Exam Limited By: No Limitations General Appearance: Alert, WD/WN, Moderate Distress Ears: Hearing Grossly Normal Nose: Normal Inspection Throat/Mouth: Normal Voice, No Airway Compromise Neck: Normal Inspection, Supple Respiratory/Chest: No Respiratory Distress, No Accessory Muscle Use Cardiovascular: Normal Peripheral Pulses, Regular Rate, Rhythm GI/Abdominal: Normal Bowel Sounds, Soft Back Exam: Muscle Spasm, Other (Scoliosis, severe tenderness) Extremities: Normal Inspection, Normal Range of Motion, Non-Tender Neurological: Alert, Normal Mood/Affect, Normal Dorsiflexion, CN II-XII Intact, Normal Plantar Flexion, No Motor/Sensory Deficits, Oriented x 3 Psychiatric: Normal Affect, Normal Mood Skin Exam: Warm, Dry, Intact, Normal Color, No Rash Course - Vital Signs Last Recorded V/S: Last Vital Signs Temp 98.8 F 06/18/17 14:02 Pulse 118 H 06/18/17 16:55 Resp 18 06/18/17 16:55 BP 96/82 06/18/17 16:55 Pulse Ox 96 06/18/17 16:55 - Orders/Labs/Meds Meds: Medications Discontinued Medications Generic Name Dose Route Start Last Admin Trade Name Freq PRN Reason Stop Dose Admin Hydromorphone HCl 1 mg 06/18/17 14:19 06/18/17 14:35 Dilaudid IM 06/18/17 14:20 1 mg ONETIME ONE Administration Hydromorphone HCl Confirm 06/18/17 14:37 06/18/17 14:36 Dilaudid Administered 06/18/17 14:38 Not Given Dose 1 mg .ROUTE .STK-MED ONE Hydromorphone HCl 1 mg 06/18/17 15:26 06/18/17 15:38 Dilaudid IM 06/18/17 15:27 1 mg ONETIME ONE Administration Ketorolac Tromethamine 60 mg 06/18/17 14:19 06/18/17 14:33 Toradol IM 06/18/17 14:20 60 mg ONETIME ONE Administration Lorazepam 1 mg 06/18/17 14:19 06/18/17 14:35 Ativan IM 06/18/17 14:20 1 mg ONETIME ONE Administration Ondansetron HCl 4 mg 06/18/17 14:20 06/18/17 14:28 Zofran Odt PO 06/18/17 14:21 4 mg ONETIME ONE Administration - Re-Assessments/Exams Free Text/Narrative Re-Assessment/Exam: Patient is a history of severe scoliosis with severe back spasms. She has not taken any medications prior to arrival due to the blade with onset of events. Onset of the discomfort was an hour ago. All 60 mg IM, Dilaudid 1 mg IM, Ativan 1 mg IM, and Zofran 4 mg by mouth. 1527 Reassessment, pain has not really improved. Ordered Dilaudid 1 mg IM. 06/18/17 16:38 Reassessment, patient is feeling much better after the above therapies. Ready to be discharged home. Pain is a 7/10. Departure - Departure Time of Disposition: 16:40 Disposition: Home, Self-Care 01 Condition: Good Clinical Impression: Back muscle spasm - Discharge Information Instructions: Back Injury Prevention, [id number], Back Pain, Adult, Easy-to- Read, Pain Medicine Instructions, [id number] Referrals: Lexi Denton LIVESTOCK AGENT [Primary Care Provider] - Forms: ED Department Discharge Additional Instructions: No driving this evening since receiving a sedative medication. Suggest going home using usual sterile please to help with her back discomfort. Refrain from any activities that cause worsening pain. Follow-up with PCP as needed. Return to the ED if you develop any new or worsening symptoms.
[2017-06-18] MEDS ORDERED: HYDROmorphone 1 MG/ML Syringe IM ONE (14:19)
[2017-06-18] MEDS ORDERED: Ketorolac 60 MG/2 ML SDV IM ONE (14:19)
[2017-06-18] MEDS ORDERED: Ondansetron 4 MG Tab.DIS PO ONE (14:20)
[2017-06-18] MEDS: LORazepam 2 MG/ML SDV IM ONE ×2 (14:34→14:35)
[2017-06-18] MEDS ORDERED: HYDROmorphone 0.5 MG/0.5 ML SYRINGE ONE (14:37)
[2017-06-18] MEDS ORDERED: HYDROmorphone 0.5 MG/0.5 ML SYRINGE IM ONE (15:26)
[2017-06-18 17:13] VITALS: BP 96/82
== END 2017-06-18 16:55 | disposition home or self-care (01) ==
LOC: JD.ED 13:40
DX: M62.830 Muscle spasm of back (principal); M41.9 Scoliosis, unspecified; Z72.0 Tobacco use; Z79.899 Other long term (current) drug therapy
CPT/HCPCS: 96372; 99283; A9270; J1170; J1885; J2060; 99284

== ENCOUNTER 2017-09-07 21:44 | Emergency (ER) | payer MEDICAID ==
[2017-09-07 21:53] VITALS: BP 113/73
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
[2017-09-07] MEDS ORDERED: Lidocaine/EPINEPHrine/Tetracaine Soln 1 ML TOP STA (22:18)
[2017-09-07] MEDS ORDERED: Ibuprofen 600 MG Tab PO ONE (22:25)
[2017-09-07] MEDS ORDERED: Lidocaine 1% with EPINEPHrine 1:100,000 20 ML MDV INJECT ONE (22:41)
[2017-09-07] MEDS ORDERED: Bupivacaine 0.5% 10 ML SDV INJECT ONE (22:41)
[2017-09-08] MEDS ORDERED: Diphtheria,Pertussis(Acell),Tetanus Vaccine 0.5 ML SDV IM ONE (00:05)
--- NOTE | 2017-09-09 08:35 | CR ---
Right second toe: Four views labeled as right second toe were obtained. Order states left side. Comparison: No prior right toe study. Fracture is identified involving the base of the distal phalanx of the second toe. Soft tissue swelling is seen. No proximal bony abnormality is noted. Impression: 1. Fracture within the base of the distal phalanx of the second toe. Side discrepancy between exam marker and order. Diagnostic code #3
== END 2017-09-08 00:35 | disposition home or self-care (01) ==
LOC: JD.ED 21:44
DX: S92.531A Displaced fracture of distal phalanx of right lesser toe(s), initial encounter for closed fracture (principal); S01.01XA Laceration without foreign body of scalp, initial encounter; T74.11XA Adult physical abuse, confirmed, initial encounter; Z23 Encounter for immunization; W10.9XXA Fall (on) (from) unspecified stairs and steps, initial encounter
CPT/HCPCS: 12002; 73660; 90471; 90715; 99284; A9270

== ENCOUNTER 2017-11-29 08:13 | Emergency (ER) | payer MEDICAID ==
[2017-11-29 08:27] VITALS: BP 152/88
[2017-11-29] MEDS ORDERED: Ondansetron 4 MG/2 ML SDV IVPUSH ONE ×2 (08:43→09:30)
[2017-11-29] MEDS ORDERED: Sodium Chloride 0.9% 1,000 ML IV SCH (08:45)
[2017-11-29] MEDS ORDERED: HYDROmorphone 0.5 MG/0.5 ML SYRINGE IVPUSH STA (08:45)
[2017-11-29] MEDS ORDERED: Iopamidol 612 MG/ML 100 ML Bottle IVPUSH ONE (08:53)
[2017-11-29] MEDS ORDERED: Diatrizoate Meglumine/Diatrizoate Sodium 37% 120 ML Bottle PO ONE (08:53)
--- NOTE | 2017-11-29 08:53 | EDM.PDOC ---
ED HPI GENERAL MEDICAL PROBLEM - General Chief Complaint: Abdominal Pain Stated Complaint: BACK PAIN Time Seen by Provider: 11/29/17 08:26 Source of Information: Reports: Patient History Limitations: Reports: No Limitations - History of Present Illness INITIAL COMMENTS - FREE TEXT/NARRATIVE: The patient states that she developed worsening of her chronic back pain, as well as generalized abdominal cramps, this morning. The abdominal cramps or constant. She has not identified any modifiers. She has had nausea and emesis, but no constipation, diarrhea, or urinary symptoms. She believes she has had a fever, but did not take her temperature, and she is afebrile here in the ED. The patient states that her abdominal pain is similar to when she had an ovarian cyst in the past, but she is not sure. The patient notes that she started her menstrual period yesterday, and that her abdominal cramps may be due to that. With respect to the patient's back pain, the patient has a history of chronic back pain related to scoliosis kyphosis, with her chronic pain managed by her PCP, Lexi Denton. Abdominal Pain Score (Numeric/FACES): 10 - Related Data Allergies Allergy/AdvReac Type Severity Reaction Status Date / Time No Known Allergies Allergy Verified 11/29/17 08:25 Home Meds: Home Meds Multivitamin [Multivitamins] 1 cap PO DAILY 02/15/15 [History] Cyclobenzaprine [Flexeril] 10 mg PO Q8H PRN 08/02/15 [History] Methocarbamol 500 mg PO Q8HR PRN 07/03/16 [History] traMADol [Ultram] 1 - 2 tab PO Q8H PRN 11/08/16 [History] Baclofen 10 mg PO Q8H PRN #15 tablet 12/11/16 [Rx] atoMOXetine HCl [Strattera] 100 mg PO DAILY 12/11/16 [History] Diazepam [Valium] 5 mg PO ASDIRECTED 04/07/17 [History] Cyanocobalamin (Vitamin B12) [Vitamin B12] 1,000 mcg INJECT ASDIRECTED 06/18/17 [History] Ondansetron [Zofran ODT] 1 tab PO Q8H PRN #10 tab.dis 11/29/17 [Rx] 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: : 4 Para: 4 Musculoskeletal History: Reports: Back Pain, Chronic (due to scoliosis and kyphosis) Endocrine/Metabolic History: Reports: Vitamin D Deficiency Hematologic History: Reports: B12 Deficiency, Iron Deficiency - Past Surgical History GI Surgical History: Reports: Bariatric Procedure (gastric bypass 2008), Cholecystectomy (2013) Female Surgical History: Reports: Section (x 4), Other (See Below) ( Left ovarian cystectomy 2000) Dermatological Surgical History: Reports: Other (See Below) (Noncancerous blue nevus excised right buttock June 2014) Social & Family History - Family History Family Medical History: Noncontributory - Tobacco Use Smoking Status *Q: Current Some Day Smoker - Caffeine Use Caffeine Use: Reports: Coffee - Alcohol Use Alcohol Use History: Yes Alcohol Use Frequency: Socially - Recreational Drug Use Recreational Drug Use: No - Living Situation & Occupation Living situation: Reports: (), with Family (2 kids, mother) Occupation: Unemployed ED ROS GENERAL - Review of Systems Review Of Systems: ROS reveals no pertinent complaints other than HPI. ED EXAM, GI/ABD - Physical Exam Exam: See Below Exam Limited By: No Limitations General Appearance: Alert, WD/WN, Anxious Eyes: Bilateral: Normal Appearance, EOMI Ears: Normal External Exam, Hearing Grossly Normal Nose: Normal Inspection, No Blood Throat/Mouth: Normal Inspection, Normal Lips, Normal Voice, No Airway Compromise Head: Atraumatic, Normocephalic Neck: Normal Inspection, Full Range of Motion Respiratory/Chest: No Respiratory Distress, Lungs Clear, Normal Breath Sounds, No Accessory Muscle Use Cardiovascular: Normal Peripheral Pulses, Regular Rate, Rhythm, No Edema, No Gallop, No JVD, No Murmur, No Rub GI/Abdominal Exam: Normal Bowel Sounds, Soft, No Organomegaly, No Distention, No Abnormal Bruit, No Mass, Tender (Generalized, non-focal) (Female) Exam: Deferred Rectal (Female) Exam: Deferred Back Exam: Other (scoliosis and kyphosis) Extremities: Normal Inspection, Normal Range of Motion, No Pedal Edema, Normal Capillary Refill Neurological: Alert, Oriented, Normal Cognition, No Motor/Sensory Deficits Psychiatric: Anxious Skin Exam: Warm, Dry, Intact, Normal Color, No Rash Course - Vital Signs Last Recorded V/S: Last Vital Signs Temp 36.1 C 11/29/17 08:25 Pulse 73 11/29/17 08:25 Resp BP 152/88 H 11/29/17 08:25 Pulse Ox 100 11/29/17 08:25 - Orders/Labs/Meds Orders: Active Orders 24 hr Category Date Time Status HCG QUALITATIVE,URINE [URCHEM] Stat Lab 11/29/17 09:36 Ordered UA W/MICROSCOPIC [URIN] Stat Lab 11/29/17 09:35 Ordered Sodium Chloride 0.9% [Normal Saline] 1,000 ml Med 11/29/17 08:45 Active IV ASDIRECTED Sodium Chloride 0.9% [Saline Flush] Med 11/29/17 08:53 Active 10 ml FLUSH ONETIME PRN Medication Orders Sodium Chloride (Normal Saline) 1,000 mls @ 150 mls/hr IV ASDIRECTED LEONORA Last Admin: 11/29/17 08:57 Dose: 150 mls/hr Sodium Chloride (Saline Flush) 10 ml FLUSH ONETIME PRN PRN Reason: IV FLUSH Last Admin: 11/29/17 10:01 Dose: 10 ml Admin: 11/29/17 08:59 Dose: 10 ml Labs: Laboratory Tests 11/29/17 11/29/17 11/29/17 Range/Units 08:30 08:30 09:35 WBC 8.86 (3.98-10.04) K/mm3 RBC 4.31 (3.98-5.22) M/mm3 Hgb 12.7 (11.2-15.7) gm/L Hct 39.2 (34.1-44.9) % MCV 91.0 (79.4-94.8) fl MCH 29.5 (25.6-32.2) pg MCHC 32.4 (32.2-35.5) g/dl RDW Std Deviation 46.7 H (36.4-46.3) fL Plt Count 263 (182-369) K/mm3 MPV 10.3 (9.4-12.3) fl Neutrophils % (Manual) 73 H (40-60) % Band Neutrophils % 2 (0-10) % Lymphocytes % (Manual) 11 L (20-40) % Atypical Lymphs % 0 % Monocytes % (Manual) 10 (2-10) % Eosinophils % (Manual) 3 (0.7-5.8) % Basophils % (Manual) 1 (0.1-1.2) Platelet Estimate Adequate RBC Morph Comment Normal Sodium 141 (136-145) mEq/L Potassium 3.7 (3.5-5.1) mEq/L Chloride 106 (98-107) mEq/L Carbon Dioxide 24 (21-32) mEq/L Anion Gap 14.7 (5-15) BUN 16 (7-18) mg/dL Creatinine 0.7 (0.55-1.02) mg/dL Est Cr Clr Drug Dosing 106.01 mL/min Estimated GFR (MDRD) > 60 (>60) mL/min BUN/Creatinine Ratio 22.9 H (14-18) Glucose 119 H (74-106) mg/dL Calcium 8.8 (8.5-10.1) mg/dL Total Bilirubin 0.6 (0.2-1.0) mg/dL AST 174 H (15-37) U/L ALT 133 H (14-59) U/L Alkaline Phosphatase 96 (46-116) U/L Total Protein 6.9 (6.4-8.2) g/dl Albumin 3.8 (3.4-5.0) g/dl Globulin 3.1 gm/dL Albumin/Globulin Ratio 1.2 (1-2) Lipase 115 (73-393) U/L Urine Color Yellow (Yellow) Urine Appearance Clear (Clear) Urine pH 6.0 (5.0-8.0) Ur Specific Mitchell > or = 1.030 (1.005-1.030) Urine Protein 1+ H (Negative) Urine Glucose (UA) Negative (Negative) Urine Ketones Trace H (Negative) Urine Occult Blood Negative (Negative) Urine Nitrite Negative (Negative) Urine Bilirubin Negative (Negative) Urine Urobilinogen 0.2 (0.2-1.0) Ur Leukocyte Esterase Negative (Negative) Urine RBC 0-5 (0-5) /hpf Urine WBC 0-5 (0-5) /hpf Ur Epithelial Cells 0-5 (0-5) /hpf Urine Bacteria Few (FEW) /hpf Urine Mucus Few (FEW) /hpf Urine HCG, Qual (NEGATIVE) 11/29/17 Range/Units 09:36 WBC (3.98-10.04) K/mm3 RBC (3.98-5.22) M/mm3 Hgb (11.2-15.7) gm/L Hct (34.1-44.9) % MCV (79.4-94.8) fl MCH (25.6-32.2) pg MCHC (32.2-35.5) g/dl RDW Std Deviation (36.4-46.3) fL Plt Count (182-369) K/mm3 MPV (9.4-12.3) fl Neutrophils % (Manual) (40-60) % Band Neutrophils % (0-10) % Lymphocytes % (Manual) (20-40) % Atypical Lymphs % % Monocytes % (Manual) (2-10) % Eosinophils % (Manual) (0.7-5.8) % Basophils % (Manual) (0.1-1.2) Platelet Estimate RBC Morph Comment Sodium (136-145) mEq/L Potassium (3.5-5.1) mEq/L Chloride (98-107) mEq/L Carbon Dioxide (21-32) mEq/L Anion Gap (5-15) BUN (7-18) mg/dL Creatinine (0.55-1.02) mg/dL Est Cr Clr Drug Dosing mL/min Estimated GFR (MDRD) (>60) mL/min BUN/Creatinine Ratio (14-18) Glucose (74-106) mg/dL Calcium (8.5-10.1) mg/dL Total Bilirubin (0.2-1.0) mg/dL AST (15-37) U/L ALT (14-59) U/L Alkaline Phosphatase (46-116) U/L Total Protein (6.4-8.2) g/dl Albumin (3.4-5.0) g/dl Globulin gm/dL Albumin/Globulin Ratio (1-2) Lipase (73-393) U/L Urine Color (Yellow) Urine Appearance (Clear) Urine pH (5.0-8.0) Ur Specific Mitchell (1.005-1.030) Urine Protein (Negative) Urine Glucose (UA) (Negative) Urine Ketones (Negative) Urine Occult Blood (Negative) Urine Nitrite (Negative) Urine Bilirubin (Negative) Urine Urobilinogen (0.2-1.0) Ur Leukocyte Esterase (Negative) Urine RBC (0-5) /hpf Urine WBC (0-5) /hpf Ur Epithelial Cells (0-5) /hpf Urine Bacteria (FEW) /hpf Urine Mucus (FEW) /hpf Urine HCG, Qual Negative (NEGATIVE) Meds: Medications Generic Name Dose Route Start Last Admin Trade Name Freq PRN Reason Stop Dose Admin Sodium Chloride 1,000 mls @ 150 mls/hr 11/29/17 08:45 11/29/17 08:57 Normal Saline IV 150 mls/hr ASDIRECTED LEONORA Administration Sodium Chloride 10 ml 11/29/17 08:53 11/29/17 10:01 Saline Flush FLUSH 10 ml ONETIME PRN Administration IV FLUSH Discontinued Medications Generic Name Dose Route Start Last Admin Trade Name Freq PRN Reason Stop Dose Admin Diatrizoate Meglum/Diatrizoate Sod 120 ml 11/29/17 08:53 11/29/17 10:01 Gastrografin 37% PO 11/29/17 08:54 10 ml ONETIME ONE Administration Hydromorphone HCl 0.5 mg 11/29/17 08:45 11/29/17 08:57 Dilaudid IVPUSH 11/29/17 08:46 0.5 mg ONETIME STA Administration Iopamidol 100 ml 11/29/17 08:53 11/29/17 10:01 Isovue-300 (61%) IVPUSH 11/29/17 08:54 100 ml ONETIME ONE Administration Ondansetron HCl 4 mg 11/29/17 08:43 11/29/17 08:57 Zofran IVPUSH 11/29/17 08:44 4 mg ONETIME ONE Administration Ondansetron HCl 4 mg 11/29/17 09:30 11/29/17 09:40 Zofran IVPUSH 11/29/17 09:31 4 mg ONETIME ONE Administration - Re-Assessments/Exams Free Text/Narrative Re-Assessment/Exam: 11/29/17 08:46 The patient presents with both back and abdominal pain. Her back pain appears to be chronic, and she states that whenever she gets back pain, she comes to come to the ER. The patient seems more concerned with her back pain than her abdominal pain. I explained to the patient that the ED does not perform chronic pain management, and therefore I will not be addressing that issue, however, on examination, the patient's does not have any bowel sounds, and complains of significant tenderness to her entire abdomen. I have therefore ordered blood work, urinalysis, urine test, had a CT scan of her abdomen and pelvis with oral and IV contrast. I have ordered Dilaudid to treat her abdominal discomfort, along with Zofran and IV fluid. 11/29/17 10:44 CT of the abdomen and pelvis with IV contrast is read by Dr. Shankar as: 1. Presumed prior gastric surgery as well as small bowel surgery. No bowel dilatation is seen. 2. Other normal findings as noted above. Incidental scoliosis. Nothing acute is appreciated. 11/29/17 11:36 The patient confirms that she had a gastric bypass in 2008. Test results discussed with the patient. Today's workup is unremarkable, and does not explain the cause of the patient's symptoms. She had speculated earlier that her abdominal pain may be due to menstrual cramps, which I cannot refute. I will discharge the patient home, and have her follow-up with her PCP. 11/29/17 12:01 The patient is requesting a prescription for Zofran. Departure - Departure Time of Disposition: 11:39 Disposition: Home, Self-Care 01 Condition: Good Clinical Impression: Abdominal pain of unknown etiology, Chronic back pain - Discharge Information *PRESCRIPTION DRUG MONITORING PROGRAM REVIEWED*: Not Applicable *COPY OF PRESCRIPTION DRUG MONITORING REPORT IN PATIENT ISELA: Not Applicable Prescriptions: Ondansetron [Zofran ODT] 1 tab PO Q8H PRN #10 tab.dis PRN Reason: Nausea/Vomiting Instructions: Chronic Back Pain Referrals: Lexi Denton [employer] TAX AUDITOR [ED Midlevel Provider] - Forms: ED Department Discharge Additional Instructions: You were seen in the emergency room for abdominal cramps, nausea vomiting, and worsening of your chronic back pain. Workup in the ER included blood work, a urinalysis, a urine test, and a CT scan of your abdomen and pelvis. Your entire workup was unremarkable, and does not explain the cause of your pain. You do not of appendicitis. You do not have pancreatitis. You do not have a urinary tract infection. Your pain could be due to menstrual cramps. Follow-up with your PCP, Lexi Denton, as needed. If any other problems, please do not hesitate to return to the ER. - My Orders Last 24 Hours: My Active Orders 11/29/17 08:45 Sodium Chloride 0.9% [Normal Saline] 1,000 ml IV ASDIRECTED 11/29/17 08:53 Sodium Chloride 0.9% [Saline Flush] 10 ml FLUSH ONETIME PRN 11/29/17 09:35 UA W/MICROSCOPIC [URIN] Stat 11/29/17 09:36 HCG QUALITATIVE,URINE [URCHEM] Stat - Assessment/Plan Last 24 Hours: My Active Orders 11/29/17 08:45 Sodium Chloride 0.9% [Normal Saline] 1,000 ml IV ASDIRECTED 11/29/17 08:53 Sodium Chloride 0.9% [Saline Flush] 10 ml FLUSH ONETIME PRN 11/29/17 09:35 UA W/MICROSCOPIC [URIN] Stat 11/29/17 09:36 HCG QUALITATIVE,URINE [URCHEM] Stat
[2017-11-29] MEDS: Sodium Chloride 0.9% 10 ML Syringe FLUSH PRN ×2 (08:59→10:01)
--- NOTE | 2017-11-29 10:37 | CT ---
CT abdomen and pelvis Technique: Multiple axial sections were obtained from above the dome of the diaphragm inferiorly through the pubic symphysis. Intravenous and oral contrast was utilized. Comparison: Prior CT abdomen and pelvis exam of 03/27/17. Findings: Visualized lung bases shows nothing acute. Liver shows no focal parenchymal abnormality. Spleen appears within normal limits. Adrenal glands show no nodule. Kidneys show symmetric contrast enhancement without hydronephrosis. Low-density lesion is noted within the mid left kidney most likely representing cortical cyst. Previous gastric surgery appears to be present. Gallbladder not seen presumably due to previous cholecystectomy. Pancreas shows no discrete abnormality. Aorta shows no aneurysmal dilatation. Prior small bowel surgery is also noted. No pelvic mass or adenopathy is seen. No bowel dilatation is seen. Appendix is not definitely visualized. Scoliosis present within the spine Impression: 1. Presumed prior gastric surgery as well as small bowel surgery. No bowel dilatation is seen. 2. Other normal findings as noted above. Incidental scoliosis. Nothing acute is appreciated. Diagnostic code #2
== END 2017-11-29 12:02 | disposition home or self-care (01) ==
LOC: JD.ED 08:13
DX: R10.9 Unspecified abdominal pain (principal); M54.9 Dorsalgia, unspecified; G89.29 Other chronic pain; Z98.84 Bariatric surgery status; Z79.899 Other long term (current) drug therapy; F17.210 Nicotine dependence, cigarettes, uncomplicated
CPT/HCPCS: 36415; 74177; 80053; 81001; 81025; 83690; 85007; 85027; 96361; 96374; 96375; 96376; 99284; J1170; J2405; J7040; J7050; Q9963; Q9967

== ENCOUNTER 2017-11-29 19:51 | Emergency (ER) | payer MEDICAID ==
[2017-11-29 20:16] VITALS: BP 133/84
[2017-11-29] MEDS ORDERED: Sodium Chloride 0.9% 1,000 ML IV ONE (21:01)
[2017-11-29] MEDS ORDERED: Ketorolac 30 MG/ML SDV IVPUSH ONE (21:03)
[2017-11-29] MEDS ORDERED: Ondansetron 4 MG/2 ML SDV IVPUSH ONE ×2 (21:03→22:33)
[2017-11-29] MEDS ORDERED: Dicyclomine 20 MG/2 ML SDV IM ONE (21:03)
[2017-11-29] MEDS ORDERED: Sodium Chloride 0.9% 10 ML Syringe FLUSH PRN (21:03)
--- NOTE | 2017-11-29 21:15 | EDM.PDOC ---
ED HPI GENERAL MEDICAL PROBLEM - General Chief Complaint: Gastrointestinal Problem Stated Complaint: RETURN VISIT FROM TODAY Time Seen by Provider: 11/29/17 20:52 Source of Information: Reports: Patient, Old Records (recent ER records) History Limitations: Reports: No Limitations - History of Present Illness INITIAL COMMENTS - FREE TEXT/NARRATIVE: 32-year-old male presents for evaluation and treatment of abdominal cramping. Patient was seen by Dr. Snyder in the ER earlier today. Please see that record for complete details. Complete workup including labs and imaging, CT of the abdomen and pelvis with IV and oral contrast, were done. No etiology for her cramps were found. She did just start her menstrual cycle and the abdominal cramping was contributed to that. Patient returns today due to the same pain. She is having pain across her lower abdomen but is diffusely tender. She reports associated symptoms of nausea and vomiting. No diarrhea. She states she is unable to keep down any food or fluids. She is also complaining of being diaphoretic and chilled. No fevers. Last bowel movement was yesterday. She states that she periodically has blood in her stool. Her stools are normally loose. Patient reports that she was on antibiotics about 2 weeks ago. No recent travel. she does report that they did eat out twice this week and questions if she has food poisoning. Previous abdominal surgeries include a laparoscopic cholecystectomy. Patient is chronic back pain from scoliosis and kyphosis. She does mention that the abdominal cramping is worsening her chronic back pain. Primary care provider in [facility]. - Related Data Allergies Allergy/AdvReac Type Severity Reaction Status Date / Time No Known Allergies Allergy Verified 11/29/17 08:25 Home Meds: Home Meds Multivitamin [Multivitamins] 1 cap PO DAILY 02/15/15 [History] Cyclobenzaprine [Flexeril] 10 mg PO Q8H PRN 08/02/15 [History] Methocarbamol 500 mg PO Q8HR PRN 07/03/16 [History] traMADol [Ultram] 1 - 2 tab PO Q8H PRN 11/08/16 [History] Baclofen 10 mg PO Q8H PRN #15 tablet 12/11/16 [Rx] atoMOXetine HCl [Strattera] 100 mg PO DAILY 12/11/16 [History] Diazepam [Valium] 5 mg PO ASDIRECTED 04/07/17 [History] Cyanocobalamin (Vitamin B12) [Vitamin B12] 1,000 mcg INJECT ASDIRECTED 06/18/17 [History] Dicyclomine [Bentyl] 20 mg PO TID PRN #20 tab 11/29/17 [Rx] Ondansetron [Zofran ODT] 1 tab PO Q8H PRN #10 tab.dis 11/29/17 [Rx] Past Medical History Genitourinary History: Reports: Other (See Below) Other Genitourinary History: severe menst. 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 - Past Surgical History GI Surgical History: Reports: Bariatric Procedure, Cholecystectomy Female Surgical History: Reports: Section, Other (See Below) Neurological Surgical History: Reports: Scoliosis Dermatological Surgical History: Reports: Other (See Below) Social & Family History - Family History Family Medical History: Noncontributory - Tobacco Use Smoking Status *Q: Never Smoker - Caffeine Use Caffeine Use: Reports: Coffee - Recreational Drug Use Recreational Drug Use: No - Living Situation & Occupation Living situation: Reports: (), with Family (2 kids, mother) Occupation: Unemployed ED ROS GENERAL - Review of Systems Review Of Systems: See Below Constitutional: Reports: Chills, Malaise, Diaphoresis. Denies: Fever GI/Abdominal: Reports: Abdominal Pain (lower abominal cramping), Bloody Stool ( periodically, none recentally), Nausea, Vomiting. Denies: Diarrhea ED EXAM, GI/ABD - Physical Exam Exam: See Below Exam Limited By: No Limitations General Appearance: Alert, WD/WN, Mild Distress Throat/Mouth: Normal Inspection, Normal Voice, No Airway Compromise Respiratory/Chest: No Respiratory Distress, Lungs Clear, Normal Breath Sounds Cardiovascular: Normal Peripheral Pulses, Regular Rate, Rhythm, No Murmur GI/Abdominal Exam: Normal Bowel Sounds, Soft, No Distention, Tender (generalized , lower abdomen greatest). No: Guarding, Rigid, Rebound Neurological: Alert, Oriented, Normal Cognition Psychiatric: Normal Affect, Normal Mood Skin Exam: Warm, Dry, Normal Color Course - Vital Signs Last Recorded V/S: Last Vital Signs Temp 98.4 F 11/29/17 20:14 Pulse 77 11/29/17 20:14 Resp 18 11/29/17 20:14 BP 133/84 11/29/17 20:14 Pulse Ox 100 11/29/17 20:14 - Orders/Labs/Meds Labs: Laboratory Tests 11/29/17 11/29/17 11/29/17 Range/Units 21:13 21:13 21:13 WBC 5.41 (3.98-10.04) K/mm3 RBC 4.53 (3.98-5.22) M/mm3 Hgb 13.4 (11.2-15.7) gm/L Hct 40.6 (34.1-44.9) % MCV 89.6 (79.4-94.8) fl MCH 29.6 (25.6-32.2) pg MCHC 33.0 (32.2-35.5) g/dl RDW Std Deviation 46.2 (36.4-46.3) fL Plt Count 250 (182-369) K/mm3 MPV 10.2 (9.4-12.3) fl Neutrophils % (Manual) 79 H (40-60) % Band Neutrophils % 0 (0-10) % Lymphocytes % (Manual) 19 L (20-40) % Atypical Lymphs % 0 % Monocytes % (Manual) 2 (2-10) % Eosinophils % (Manual) 0 L (0.7-5.8) % Basophils % (Manual) 0 L (0.1-1.2) Platelet Estimate Adequate RBC Morph Comment Normal Sodium 140 (136-145) mEq/L Potassium 4.0 (3.5-5.1) mEq/L Chloride 105 (98-107) mEq/L Carbon Dioxide 26 (21-32) mEq/L Anion Gap 13.0 (5-15) BUN 13 (7-18) mg/dL Creatinine 0.6 (0.55-1.02) mg/dL Est Cr Clr Drug Dosing 123.68 mL/min Estimated GFR (MDRD) > 60 (>60) mL/min BUN/Creatinine Ratio 21.7 H (14-18) Glucose 132 H (74-106) mg/dL Calcium 9.1 (8.5-10.1) mg/dL Magnesium 2.0 (1.8-2.4) mg/dl Total Bilirubin 0.7 (0.2-1.0) mg/dL AST 141 H (15-37) U/L ALT 175 H (14-59) U/L Alkaline Phosphatase 94 (46-116) U/L C-Reactive Protein < 0.2 (<1.0) mg/dL Total Protein 6.9 (6.4-8.2) g/dl Albumin 3.8 (3.4-5.0) g/dl Globulin 3.1 gm/dL Albumin/Globulin Ratio 1.2 (1-2) Acetaminophen 0 L (10-30) ug/mL Meds: Medications Discontinued Medications Generic Name Dose Route Start Last Admin Trade Name Freq PRN Reason Stop Dose Admin Dicyclomine HCl 20 mg 11/29/17 21:03 11/29/17 21:22 Bentyl IM 11/29/17 21:04 20 mg ONETIME ONE Administration Hydromorphone HCl 1 mg 11/29/17 22:33 11/29/17 22:40 Dilaudid IVPUSH 11/29/17 22:34 1 mg ONETIME ONE Administration Sodium Chloride 1,000 mls @ 999 mls/hr 11/29/17 21:01 11/29/17 21:19 Normal Saline IV 11/29/17 22:01 999 mls/hr ONETIME ONE Administration Ketorolac Tromethamine 30 mg 11/29/17 21:03 11/29/17 21:20 Toradol IVPUSH 11/29/17 21:04 30 mg ONETIME ONE Administration Ondansetron HCl 4 mg 11/29/17 21:03 11/29/17 21:20 Zofran IVPUSH 11/29/17 21:04 4 mg ONETIME ONE Administration Ondansetron HCl 4 mg 11/29/17 22:33 11/29/17 22:39 Zofran IVPUSH 11/29/17 22:34 4 mg ONETIME ONE Administration Sodium Chloride 10 ml 11/29/17 21:03 11/29/17 21:24 Saline Flush FLUSH 10 ml ASDIRECTED PRN Administration Keep Vein Open - Re-Assessments/Exams Free Text/Narrative Re-Assessment/Exam: 11/29/17 22:49 Reviewed the labs with the patient. ER visit from earlier today reviewed. Recommend symptomatic care for gastroenteritis. Consideration also given that she may be withdrawing from opoids. Will discharge home tonight. Discharge instructions as documented. Departure - Departure Time of Disposition: 22:55 Disposition: Home, Self-Care 01 Condition: Fair Clinical Impression: Gastroenteritis - Discharge Information *PRESCRIPTION DRUG MONITORING PROGRAM REVIEWED*: Yes *COPY OF PRESCRIPTION DRUG MONITORING REPORT IN PATIENT ISELA: No Prescriptions: Dicyclomine [Bentyl] 20 mg PO TID PRN #20 tab PRN Reason: Abdominal Pain Instructions: Viral Gastroenteritis, Adult, [id number] Referrals: Lexi Denton TECHNICAL SOLUTION ARCHITECT [Primary Care Provider] - Forms: ED Department Discharge Additional Instructions: you were given medication in the ER that can affect your ability to drive and operate machinery. Do not drive or operate machinery within 12 hours of taking prescription narcotic pain medication. Bentyl 20 mg 3 times a day as needed for abdominal pain and cramping. Continue take the Zofran as needed. May pickup topical phenergran gel. This is a topical products you apply to your wrist. This is available [facility] pharmacy. They are open from 8 AM to noon tomorrow. Clear fluids. May advance to bland later Saturday or Saturday as tolerated. [place] diet recommendations include crackers, soup broth, rice, crackers, applesauce etc. Follow-up with your primary care provider for recheck of your symptoms this week. Please return to the ER if your symptoms change or worsen.
[2017-11-29 21:41] LABS: ACETAMINOPHEN 0 ug/mL (10-30)
[2017-11-29] MEDS ORDERED: HYDROmorphone 1 MG/ML Syringe IVPUSH ONE (22:33)
== END 2017-11-29 23:13 | disposition home or self-care (01) ==
LOC: JD.ED 19:51
DX: K52.9 Noninfective gastroenteritis and colitis, unspecified (principal); Z79.899 Other long term (current) drug therapy
CPT/HCPCS: 36415; 80053; 83735; 85007; 85027; 86140; 96361; 96372; 96374; 96375; 96376; 99284; G0480; J0500; J1170; J1885; J2405; J7040; J7050

== ENCOUNTER 2021-11-07 15:04 | Emergency (ER) | payer MEDICAID ==
[2021-11-07 16:21] VITALS: BP 112/7; PULSE 93
[2021-11-07] MEDS ORDERED: Sodium Chloride 0.9% 10 ML Syringe FLUSH PRN (16:37)
[2021-11-07] MEDS ORDERED: HYDROmorphone 0.5 MG/0.5 ML Syringe IVPUSH ONE ×2 (16:38→17:37)
[2021-11-07] MEDS ORDERED: Orphenadrine 100 MG Tab.ER PO ONE (17:37)
[2021-11-07] MEDS ORDERED: Acetaminophen/oxyCODONE 325-5 MG Tab PO ONE ×2 (20:11→21:32)
== END 2021-11-07 22:16 | disposition home or self-care (01) ==
LOC: JD.ED 15:04
DX: M62.830 Muscle spasm of back (principal)
CPT/HCPCS: 72131; 72192; 96374; 96375; 96376; 99283; A9270; J1170; J3360; J3490; 99284

== ENCOUNTER 2023-06-01 07:15 | Emergency (ER) | payer MEDICAID ==
[2023-06-01 07:43] VITALS: PULSE 46
[2023-06-01 08:24] LABS: BASOPHILS PERCENT AUTO 0.2 % (0.0-1.0); EOSINOPHILS PERCENT AUTO 0.1 % (0.0-6.0); HEMATOCRIT 42.8 % (37.0-47.0); HEMOGLOBIN 14.1 gm/dl (12.0-16.0); IMMATURE GRAN ABSOLUTE AUTO 0.05 K/mm3 (0.00-0.05); IMMATURE GRAN PERCENT AUTO 0.4 % (0.0-0.4); LYMPHOCYTES ABSOLUTE AUTO 1.1 K/mm3 (1.0-4.8); LYMPHOCYTES PERCENT AUTO 9.9 % (24.0-44.0); MEAN CORPUSCULAR HEMOGLOBIN 28.8 pg (28.0-32.0); MEAN CORPUSCULAR HGB CONC 32.9 g/dl (32.0-36.0); MEAN CORPUSCULAR VOLUME 87.5 fl (83.0-99.0); MEAN PLATELET VOLUME 10.1 fl (9.4-12.3); MONOCYTES ABSOLUTE AUTO 0.6 K/mm3 (0.0-0.8); MONOCYTES PERCENT AUTO 5.6 % (0.0-8.0); NEUTROPHILS ABSOLUTE AUTO 9.4 K/mm3 (1.8-7.7); NEUTROPHILS PERCENT AUTO 83.8 % (41.0-71.0); PLATELET COUNT,PLT 292 K/mm3 (150-400); RED BLOOD CELL COUNT 4.89 M/mm3 (4.10-5.30); WHITE BLOOD CELL COUNT,WBC 11.17 K/mm3 (3.9-11.3)
[2023-06-01 08:38] LABS: INFLUENZA A NAA NEGATIVE (NEGATIVE)
[2023-06-01 08:53] LABS: A/G RATIO 1.1 (1-2); ALBUMIN 4.1 g/dl (3.4-5.0); ANION GAP 14.9 (5-15); BILIRUBIN TOTAL 1.3 mg/dL (0.2-1.0); BUN/CREATININE RATIO 18.6 (14-18); CALCIUM 9.5 mg/dL (8.5-10.1); CREATININE 0.7 mg/dL (0.55-1.02); EST CRCL DRUG DOSING (CG) 93.17 mL/min; POTASSIUM,K 3.9 mEq/L (3.5-5.1); PROTEIN TOTAL,TP 7.7 g/dl (6.4-8.2)
[2023-06-01] MEDS: Ondansetron 4 MG Tab.DIS PO ONE (09:12)
[2023-06-01 11:44] VITALS: BP 126/68
[2023-06-01] MEDS: Sodium Chloride 0.9% 1,000 ML IV SCH (11:48)
[2023-06-01] MEDS: Morphine 2 MG/ML SYRINGE IVPUSH ONE (11:48)
[2023-06-01] MEDS: Ondansetron 4 MG/2 ML SDV IVPUSH ONE (11:48)
[2023-06-01] MEDS: Sodium Chloride 0.9% 10 ML Syringe FLUSH PRN (11:49)
== END 2023-06-01 13:00 ==
LOC: JD.ED 07:15
DX: K56.1 Intussusception (principal); R93.89 Abnormal findings on diagnostic imaging of other specified body structures; Z79.899 Other long term (current) drug therapy
CPT/HCPCS: 36415; 74176; 80053; 83605; 83690; 84484; 84703; 85025; 87502; 93005; 96361; 96374; 96375; 99285; A9270; J2270; J2405; J3490; J7030

== ENCOUNTER 2023-07-31 09:21 | Emergency (ER) | payer MEDICAID ==
[2023-07-31] MEDS ORDERED: Naloxone 0.4 MG/ML SDV IVPUSH PRN (09:48)
[2023-07-31 10:02] LABS: BASOPHILS ABSOLUTE AUTO 0.1 K/mm3 (0.0-0.2); BASOPHILS PERCENT AUTO 0.5 % (0.0-1.0); HEMATOCRIT 43.5 % (37.0-47.0); HEMOGLOBIN 14.3 gm/dl (12.0-16.0); IMMATURE GRAN ABSOLUTE AUTO 0.03 K/mm3 (0.00-0.05); IMMATURE GRAN PERCENT AUTO 0.3 % (0.0-0.4); LYMPHOCYTES ABSOLUTE AUTO 0.6 K/mm3 (1.0-4.8); MEAN CORPUSCULAR HEMOGLOBIN 28.3 pg (28.0-32.0); MEAN CORPUSCULAR HGB CONC 32.9 g/dl (32.0-36.0); MEAN CORPUSCULAR VOLUME 86.1 fl (83.0-99.0); MEAN PLATELET VOLUME 10.1 fl (9.4-12.3); MONOCYTES ABSOLUTE AUTO 0.2 K/mm3 (0.0-0.8); NEUTROPHILS ABSOLUTE AUTO 9.4 K/mm3 (1.8-7.7); NEUTROPHILS PERCENT AUTO 91.2 % (41.0-71.0); PLATELET COUNT,PLT 289 K/mm3 (150-400); RED BLOOD CELL COUNT 5.05 M/mm3 (4.10-5.30); WHITE BLOOD CELL COUNT,WBC 10.27 K/mm3 (3.9-11.3)
[2023-07-31 10:16] LABS: A/G RATIO 1.1 (1-2); ALBUMIN 3.9 g/dl (3.4-5.0); ANION GAP 17.8 (5-15); BILIRUBIN TOTAL 0.8 mg/dL (0.2-1.0); BUN/CREATININE RATIO 18.8 (14-18); CALCIUM 9.5 mg/dL (8.5-10.1); CREATININE 0.8 mg/dL (0.55-1.02); EST CRCL DRUG DOSING (CG) 80.72 mL/min; MAGNESIUM 1.9 mg/dL (1.8-2.4); POTASSIUM,K 3.8 mEq/L (3.5-5.1); PROTEIN TOTAL,TP 7.6 g/dl (6.4-8.2)
[2023-07-31] MEDS: Sodium Chloride 0.9% 1,000 ML IV ONE (10:20)
[2023-07-31] MEDS: Sodium Chloride 0.9% 10 ML Syringe FLUSH PRN (10:20)
[2023-07-31] MEDS: HYDROmorphone 1 MG/ML Syringe IVPUSH ONE (10:20)
[2023-07-31] MEDS: Ondansetron 4 MG/2 ML SDV IVPUSH ONE ×2 (10:20→12:25)
[2023-07-31] MEDS ORDERED: Sodium Chloride 0.9% 10 ML Syringe FLUSH PRN (10:33)
[2023-07-31 10:42] LABS: APPEARANCE,URINE CLEAR (Clear); BILIRUBIN,URINE NEGATIVE (Negative); COLOR,URINE YELLOW (Yellow); GLUCOSE,URINE NEGATIVE (Negative); KETONES,URINE 1+ (Negative); LEUKOCYTE ESTERASE,URINE NEGATIVE (Negative); NITRITE,URINE NEGATIVE (Negative); OCCULT BLOOD,URINE 1+ (Negative); PROTEIN,URINE 1+ (Negative); UROBILINOGEN,URINE 0.2 (0.2-1.0)
[2023-07-31] MEDS: Iopamidol 612 MG/ML 100 ML Bottle IVPUSH ONE (10:46)
[2023-07-31 10:47] LABS: SLIDE REVIEW ABNORMAL SMEAR
[2023-07-31 10:53] LABS: BACTERIA,URINE FEW /hpf (FEW); MUCUS,URINE MANY /hpf (FEW); WBC,URINE 0-5 /hpf (0-5)
[2023-07-31] MEDS ORDERED: Sodium Chloride 0.9% 1,000 ML IV SCH (12:00)
[2023-07-31 13:10] VITALS: BP 138/73; PULSE 58
== END 2023-07-31 12:45 | disposition home or self-care (01) ==
LOC: JD.ED 09:21
DX: K52.9 Noninfective gastroenteritis and colitis, unspecified (principal); Z86.16 Personal history of COVID-19; Z90.49 Acquired absence of other specified parts of digestive tract; Z79.899 Other long term (current) drug therapy
CPT/HCPCS: 36415; 74177; 80053; 81001; 83735; 84703; 85025; 96361; 96374; 96375; 96376; 99284; J1170; J2405; J3490; J7030; Q9967

== ENCOUNTER 2023-08-01 07:50 | Emergency (ER) | payer MEDICAID ==
[2023-08-01 08:04] VITALS: PULSE 52
[2023-08-01] MEDS: Sodium Chloride 0.9% 10 ML Syringe FLUSH PRN (08:23)
[2023-08-01] MEDS: Ondansetron 4 MG/2 ML SDV IVPUSH ONE (08:23)
[2023-08-01] MEDS: Sodium Chloride 0.9% 1,000 ML IV STA (08:23)
[2023-08-01] MEDS: HYDROmorphone 0.5 MG/0.5 ML Syringe IVPUSH ONE ×2 (08:23→09:49)
[2023-08-01 08:27] LABS: BASOPHILS PERCENT AUTO 0.2 % (0.0-1.0); HEMATOCRIT 42.3 % (37.0-47.0); HEMOGLOBIN 14.2 gm/dl (12.0-16.0); IMMATURE GRAN ABSOLUTE AUTO 0.06 K/mm3 (0.00-0.05); IMMATURE GRAN PERCENT AUTO 0.5 % (0.0-0.4); LYMPHOCYTES ABSOLUTE AUTO 0.9 K/mm3 (1.0-4.8); MEAN CORPUSCULAR HEMOGLOBIN 28.4 pg (28.0-32.0); MEAN CORPUSCULAR HGB CONC 33.6 g/dl (32.0-36.0); MEAN CORPUSCULAR VOLUME 84.6 fl (83.0-99.0); MONOCYTES ABSOLUTE AUTO 0.6 K/mm3 (0.0-0.8); MONOCYTES PERCENT AUTO 4.8 % (0.0-8.0); NEUTROPHILS PERCENT AUTO 87.5 % (41.0-71.0); PLATELET COUNT,PLT 344 K/mm3 (150-400); WHITE BLOOD CELL COUNT,WBC 12.56 K/mm3 (3.9-11.3)
[2023-08-01 08:48] LABS: ALBUMIN 3.8 g/dl (3.4-5.0); ANION GAP 16.5 (5-15); BILIRUBIN TOTAL 1.3 mg/dL (0.2-1.0); BUN/CREATININE RATIO 18.8 (14-18); C-REACTIVE PROTEIN 0.09 mg/dL (<0.30); CALCIUM 9.5 mg/dL (8.5-10.1); CREATININE 0.8 mg/dL (0.55-1.02); EST CRCL DRUG DOSING (CG) 80.72 mL/min; POTASSIUM,K 3.5 mEq/L (3.5-5.1); PROTEIN TOTAL,TP 7.6 g/dl (6.4-8.2)
[2023-08-01 09:05] LABS: CORONAVIRUS COVID-19 NAA NEGATIVE (NEGATIVE); INFLUENZA A NAA NEGATIVE (NEGATIVE); RESPIRATORY SYNCYTIAL VIR NAA NEGATIVE (NEGATIVE)
[2023-08-01] MEDS: Ketorolac 30 MG/ML SDV IVPUSH ONE (09:08)
[2023-08-01 09:18] LABS: APPEARANCE,URINE CLEAR (Clear); BILIRUBIN,URINE NEGATIVE (Negative); COLOR,URINE YELLOW (Yellow); GLUCOSE,URINE NEGATIVE (Negative); KETONES,URINE NEGATIVE (Negative); LEUKOCYTE ESTERASE,URINE NEGATIVE (Negative); NITRITE,URINE NEGATIVE (Negative); OCCULT BLOOD,URINE 2+ (Negative); PROTEIN,URINE 2+ (Negative); UROBILINOGEN,URINE 0.2 (0.2-1.0)
[2023-08-01 09:38] LABS: BACTERIA,URINE MODERATE /hpf (FEW); MUCUS,URINE MANY /hpf (FEW); YEAST BUDDING,URINE FEW (NOT SEEN)
[2023-08-01 14:22] VITALS: BP 124/74
== END 2023-08-01 10:45 | disposition home or self-care (01) ==
LOC: JD.ED 07:50
DX: R10.31 Right lower quadrant pain (principal); R10.84 Generalized abdominal pain; R19.7 Diarrhea, unspecified; R11.2 Nausea with vomiting, unspecified; M41.9 Scoliosis, unspecified; M54.9 Dorsalgia, unspecified; Z91.048 Other nonmedicinal substance allergy status; Z86.16 Personal history of COVID-19; Z90.49 Acquired absence of other specified parts of digestive tract; Z79.899 Other long term (current) drug therapy
CPT/HCPCS: 0241U; 36415; 80053; 81001; 83690; 84703; 85025; 86140; 96361; 96374; 96375; 96376; 99284; J1170; J1885; J2405; J3490; J7030

== ENCOUNTER 2023-08-01 22:17 | Emergency (ER) | payer MEDICAID ==
[2023-08-01 22:53] VITALS: BP 159/83; PULSE 55
[2023-08-02] MEDS: Sodium Chloride 0.9% 1,000 ML IV ONE (01:00)
[2023-08-02] MEDS: Ondansetron 4 MG/2 ML SDV IVPUSH ONE ×2 (01:11→05:03)
[2023-08-02] MEDS: Morphine 4 MG/ML Syringe IVPUSH ONE ×2 (01:11→05:03)
[2023-08-02] MEDS: Sodium Chloride 0.9% 10 ML Syringe FLUSH PRN (01:12)
== END 2023-08-02 05:15 ==
LOC: JD.ED 22:17
DX: K56.1 Intussusception (principal); Z91.048 Other nonmedicinal substance allergy status; Z86.16 Personal history of COVID-19; Z90.49 Acquired absence of other specified parts of digestive tract; Z79.899 Other long term (current) drug therapy
CPT/HCPCS: 74176; 96361; 96374; 96375; 96376; 99285; J2270; J2405; J3490; J7030; 99284

== ENCOUNTER 2023-08-27 07:54 | Day surgery (SDC) | payer MEDICAID ==
[~2023-08-27 07:54] MED LIST: Sodium Chloride 0.9% 10 ML Syringe FLUSH PRN; Sodium Chloride 0.9% 10 ML Syringe FLUSH SCH
[2023-08-27] MEDS: Lactated Ringers 1,000 ML IV SCH (08:15)
[2023-08-27] MEDS ORDERED: Propofol 200 MG/20 ML SDV ONE (09:18)
[2023-08-27] MEDS ORDERED: Midazolam 1 MG/ML 2 ML SDV ONE (09:18)
[2023-08-27] MEDS ORDERED: fentaNYL 250 MCG/5 ML SDV ONE (09:20)
[2023-08-27] MEDS: Baclofen 10 MG Tab PO PRN (09:29)
[2023-08-27] MEDS ORDERED: Ondansetron 4 MG/2 ML SDV ONE (10:54)
[2023-08-27] MEDS ORDERED: Lactated Ringers 1,000 ML IV ONE (11:30)
[2023-08-27] MEDS ORDERED: Ketorolac 30 MG/ML SDV ONE (11:47)
[2023-08-27] MEDS ORDERED: fentaNYL 100 MCG/2 ML SDV IVPUSH PRN (12:09)
[2023-08-27] MEDS ORDERED: HYDROmorphone 0.5 MG/0.5 ML Syringe IVPUSH PRN (12:09)
[2023-08-27] MEDS: Dexamethasone 4 MG/ML SDV IVPUSH ONE (12:10)
[2023-08-27] MEDS: oxyCODONE 5 MG Tab PO SCH (13:55)
[2023-08-27 14:31] VITALS: BP 108/59; PULSE 59
[2023-08-27] MEDS: Lidocaine 1% with EPINEPHrine 1:100,000 20 ML MDV ONE (15:58)
== END 2023-08-27 14:25 | disposition home or self-care (01) ==
LOC: JD.SDS 07:54
PROVIDERS: ATTEND Obstetrics & Gynecology
DX: D06.9 Carcinoma in situ of cervix, unspecified (principal); F41.9 Anxiety disorder, unspecified; F90.9 Attention-deficit hyperactivity disorder, unspecified type; F32.A Depression, unspecified; Z79.899 Other long term (current) drug therapy; Z91.011 Allergy to milk products
CPT/HCPCS: 57456; 57460; A9270; J1100; J1885; J2250; J2405; J2704; J3010; J7120; 00940; J3490

== ENCOUNTER 2024-04-08 12:25 | Emergency (ER) | payer SELFPAY ==
[2024-04-08] MEDS ORDERED: Naloxone 0.4 MG/ML SDV IVPUSH PRN ×2 (13:46→17:11)
[2024-04-08] MEDS: HYDROmorphone 0.5 MG/0.5 ML Syringe IVPUSH ONE ×2 (14:15→17:33)
[2024-04-08 14:16] LABS: BASOPHILS PERCENT AUTO 0.4 % (0.0-1.0); EOSINOPHILS PERCENT AUTO 0.1 % (0.0-6.0); HEMATOCRIT 37.6 % (37.0-47.0); HEMOGLOBIN 12.2 gm/dl (12.0-16.0); IMMATURE GRAN ABSOLUTE AUTO 0.03 K/mm3 (0.00-0.05); IMMATURE GRAN PERCENT AUTO 0.4 % (0.0-0.4); LYMPHOCYTES ABSOLUTE AUTO 0.5 K/mm3 (1.0-4.8); LYMPHOCYTES PERCENT AUTO 5.9 % (24.0-44.0); MEAN CORPUSCULAR HEMOGLOBIN 26.1 pg (28.0-32.0); MEAN CORPUSCULAR HGB CONC 32.4 g/dl (32.0-36.0); MEAN CORPUSCULAR VOLUME 80.3 fl (83.0-99.0); MEAN PLATELET VOLUME 10.5 fl (9.4-12.3); MONOCYTES ABSOLUTE AUTO 0.2 K/mm3 (0.0-0.8); MONOCYTES PERCENT AUTO 2.2 % (0.0-8.0); NEUTROPHILS ABSOLUTE AUTO 7.2 K/mm3 (1.8-7.7); PLATELET COUNT,PLT 247 K/mm3 (150-400); RED BLOOD CELL COUNT 4.68 M/mm3 (4.10-5.30); WHITE BLOOD CELL COUNT,WBC 7.85 K/mm3 (3.9-11.3)
[2024-04-08] MEDS: Sodium Chloride 0.9% 1,000 ML IV ONE ×2 (14:19→16:27)
[2024-04-08 14:44] LABS: A/G RATIO 1.1 (1-2); ALANINE AMINOTRANSFERASE,ALT 73 U/L (14-59); ALKALINE PHOSPHATASE 111 U/L (46-116); ANION GAP 16.2 (5-15); ASPARTATE AMNIOTRANSFERASE,AST 49 U/L (15-37); BILIRUBIN TOTAL 0.8 mg/dL (0.2-1.0); BLOOD UREA NITROGEN,BUN 9 mg/dL (7-18); BUN/CREATININE RATIO 12.9 (14-18); C-REACTIVE PROTEIN <0.05 mg/dL (<0.30); CALCIUM 9.2 mg/dL (8.5-10.1); CARBON DIOXIDE,CO2 23 mEq/L (21-32); CHLORIDE,CL 102 mEq/L (98-107); CREATININE 0.7 mg/dL (0.55-1.02); EST CRCL DRUG DOSING (CG) 96.13 mL/min; ESTIMATED GFR 112 mL/min (>60); GLUCOSE RANDOM 152 mg/dL (70-99); LIPASE 22 U/L (16-77); POTASSIUM,K 4.2 mEq/L (3.5-5.1); PROTEIN TOTAL,TP 7.7 g/dl (6.4-8.2); SODIUM,NA 137 mEq/L (136-145)
[2024-04-08] MEDS: Metoclopramide 10 MG/2 ML SDV IVPUSH ONE (16:19)
[2024-04-08] MEDS: Famotidine 20 MG/2 ML SDV IVPUSH ONE (16:21)
[2024-04-08] MEDS: Ondansetron 4 MG/2 ML SDV IVPUSH ONE (17:31)
[2024-04-08 17:40] VITALS: PULSE 60
[2024-04-08 18:01] VITALS: BP 134/68
== END 2024-04-08 18:00 | disposition home or self-care (01) ==
LOC: JD.ED 12:25
DX: R11.2 Nausea with vomiting, unspecified (principal); R10.32 Left lower quadrant pain; Z86.16 Personal history of COVID-19; Z98.84 Bariatric surgery status; Z90.49 Acquired absence of other specified parts of digestive tract; Z90.710 Acquired absence of both cervix and uterus; Z91.011 Allergy to milk products; Z91.048 Other nonmedicinal substance allergy status; Z79.899 Other long term (current) drug therapy
CPT/HCPCS: 36415; 74176; 80053; 83690; 85025; 86140; 96361; 96374; 96375; 96376; 99284; J2405; J2765; J3490; J7030